=== PATIENT | female | born 1995 | race Caucasian/White ===

== ENCOUNTER 2018-07-24 15:15 | Outpatient (RCR) | payer OTHER, SELFPAY ==
--- NOTE | 2018-02-10 16:16 | PT.OTN ---
Current Diagnoses Stiffness of right knee, not elsewhere classified (02/11/18) Muscle weakness (generalized) (02/11/18) Other abnormalities of gait and mobility (02/11/18) Sprain of anterior cruciate ligament of right knee, subsequent encounter (02/11/18) Transition note: On February 10, 2018 our therapy services consisting of Speech, Occupational, and Physical Therapy transitioned from the [employer] electronic documentation system to a new [employer] electronic documentation system.?? All documentation prior to February 10 can be found under [employer] saved data. From February 10 forward all medical record documentation will be in [employer] 6.1.
--- NOTE | 2018-02-11 12:40 | PT.OTN ---
Current Diagnoses Stiffness of right knee, not elsewhere classified (02/11/18) Muscle weakness (generalized) (02/11/18) Other abnormalities of gait and mobility (02/11/18) Sprain of anterior cruciate ligament of right knee, subsequent encounter (02/11/18) Physical Therapy Treatment Note PT-OP-A Visit Information Start: 02/11/18 09:30 Freq: Status: Active Protocol: Activity Type Activity Date Activity User E-Sign Co-Sign Detail Recorded Client Recorded Date Recorded By Document 02/11/18 11:58 [place] [id number] 02/11/18 12:10 [facility] 02/11/18 11:58 Out-Patient Physical Therapy Visit Information [Visit Information] -Visit Type Treatment Note -Visit Note 11/45 visits per calendar year -Visit Start Time 09:45 -Visit Stop Time 10:30 -Total Visit Minutes 45 -Visit Number 11 -Number of ROADWAY TECHNICIAN Visits 0 [Evaluation Information] -Evaluation Date 01/01/18 PT-OP-C Subjective Start: 02/11/18 09:30 Freq: Status: Active Protocol: Activity Type Activity Date Activity User E-Sign Co-Sign Detail Recorded Client Recorded Date Recorded By Document 02/11/18 11:58 [facility] [email or web address] 02/11/18 12:10 [facility] 02/11/18 11:58 OP-PT Subjective [Patient Comments] -Patient Comments Pt has been putting emphasis on improving her knee ROM at home. PT-OP-K Range of Motion Start: 02/11/18 09:30 Freq: Status: Active Protocol: Activity Type Activity Date Activity User E-Sign Co-Sign Detail Recorded Client Recorded Date Recorded By Document 02/11/18 11:58 [place] [id number] 02/11/18 12:10 [facility] 02/11/18 11:58 Knee Goniometric Range of Motion [Knee] Measured in Degrees Right -Knee ROM WFL No -Patient Position Supine -Flexion Active (120-145 degrees) 125 -Extension Active (0 degrees) 3 [ROM Limitations] -Comments R knee extension active to 1 deg . of flexion after manual therapy PT-OP-Q Treatments Start: 02/11/18 09:30 Freq: Status: Active Protocol: Activity Type Activity Date Activity User E-Sign Co-Sign Detail Recorded Client Recorded Date Recorded By Document 02/11/18 11:58 [facility] [email or web address] 02/11/18 12:10 [facility] 02/11/18 11:58 Cardio Equipment [Elliptical] -Duration (Minutes) 6 -Resistance 4 Therapeutic Exercises [Standing Exercises] 3 -Standing Exercise Name SL heel raises -Side right -Reps/Minutes 1 x 15 reps 2 -Standing Exercise Name Lunges- step through -Side bilateral -Equipment Used unilat. rail -Reps/Minutes 3 x 5 reps 1 -Standing Exercise Name Step downs -Side right -Equipment Used 6 steps -Reps/Minutes 12 reps Manual Therapy Treatment [Soft Tissue Mobilization] 2 -Body Location Piriformis & gluteal (R) -Mobilization Type Rolling -Intensity/Depth Deep -Body Position Sidelying 1 -Body Location Psoas (R) -Mobilization Type Sustained Pressure -Intensity/Depth Deep -Body Position Supine [Joint Mobilizations] 2 -Joint Tibiofemoral -Direction AP tibia and femur -Grade III -Reps/Duration 8 min 1 -Joint Patellofemoral (R) -Direction Superior, Inferior, medial glides -Body Position Supine -Reps/Duration 6 min PT-OP-T Assessment and Plan Start: 02/11/18 09:30 Freq: Status: Active Protocol: Activity Type Activity Date Activity User E-Sign Co-Sign Detail Recorded Client Recorded Date Recorded By Document 02/11/18 12:21 [facility] [email or web address] 02/11/18 12:27 [facility] 02/11/18 12:21 Physical Therapy Assessment [Rehab Potential] -Rehabilitation Potential Good [Impairments] -Impairments ROM Soft Tissue Mobility Strength [Assessment Summary] -Assessment Pt still with limited knee ROM, although demonstrates good carry over from last session. Pt with increased pain in R psoas and piriformis and gluteals, which contribute to impaired gait. Overall, pt is progressing slowly s/p R ACL reconstruction, but appears to be improving with carry-over . Pt took to- go ice packs this date due to having to go back to work immediately after this session. Physical Therapy Plan [Frequency and Duration] -Frequency of Treatment 2x/Week -Duration of Treatment 12 weeks -Plan of Care Start Date 01/01/18 -Plan of Care End Date 04/24/18 [Therapeutic Interventions] -Therapeutic Interventions Balance Training Gait Training Neuromuscular Re-education Soft Tissue Mobilization Therapeutic Exercises [Next Visit Focus/Plan] -Next Visit Plan Continue to progress R knee ROM (extension and flexion), R knee hamstring and quad strengthening, gait training.
--- NOTE | 2018-02-13 10:45 | PT.OTN ---
Current Diagnoses Stiffness of right knee, not elsewhere classified (02/13/18) Muscle weakness (generalized) (02/13/18) Other abnormalities of gait and mobility (02/13/18) Sprain of anterior cruciate ligament of right knee, subsequent encounter (02/13/18) Physical Therapy Treatment Note PT-OP-A Visit Information Start: 02/11/18 09:30 Freq: Status: Active Protocol: Activity Type Activity Date Activity User E-Sign Co-Sign Detail Recorded Client Recorded Date Recorded By Document 02/13/18 09:45 [place] [id number] 02/13/18 10:35 [facility] 02/13/18 09:45 Out-Patient Physical Therapy Visit Information [Visit Information] -Visit Type Treatment Note -Visit Start Time 09:45 -Visit Stop Time 10:31 -Total Visit Minutes 46 -Visit Number 12 -Number of LABOR RELATIONS OFFICER Visits 0 PT-OP-C Subjective Start: 02/11/18 09:30 Freq: Status: Active Protocol: Activity Type Activity Date Activity User E-Sign Co-Sign Detail Recorded Client Recorded Date Recorded By Document 02/13/18 09:45 [place] [id number] 02/13/18 10:35 [facility] 02/13/18 09:45 OP-PT Subjective [Patient Comments] -Patient Comments Pt notes that she has been working to get her extension. No increased pain after previous treatment. PT-OP-K Range of Motion Start: 02/11/18 09:30 Freq: Status: Active Protocol: Activity Type Activity Date Activity User E-Sign Co-Sign Detail Recorded Client Recorded Date Recorded By Document 02/13/18 09:45 [place] [id number] 02/13/18 10:44 [facility] 02/13/18 09:45 Knee Goniometric Range of Motion [Knee] Measured in Degrees Right -Knee ROM WFL No -Patient Position Supine -Extension Active (degrees) 3 -Extension Passive (degrees) 0 PT-OP-Q Treatments Start: 02/11/18 09:30 Freq: Status: Active Protocol: Activity Type Activity Date Activity User E-Sign Co-Sign Detail Recorded Client Recorded Date Recorded By Document 02/13/18 09:45 [facility] [email or web address] 02/13/18 10:44 [facility] 02/13/18 09:45 Cardio Equipment [Elliptical] -Duration (Minutes) 6 -Resistance 6 Therapeutic Exercises [Supine Exercises] 1 -Supine Exercise Name Psoas and Rectus Femoris stretch -Side right -Reps/Minutes 4 -Comments RLE off table Manual Therapy Treatment [Soft Tissue Mobilization] 3 -Body Location R knee scar tissue -Mobilization Type Rolling -Intensity/Depth Moderate -Body Position Supine -Comments 7 min. 1 -Body Location Psoas (R) -Mobilization Type Sustained Pressure -Intensity/Depth Deep -Body Position Supine -Comments 14min [Joint Mobilizations] 2 -Joint Tibiofemoral -Direction AP tibia and femur -Grade III -Reps/Duration 15 min. PT-OP-T Assessment and Plan Start: 02/11/18 09:30 Freq: Status: Active Protocol: Activity Type Activity Date Activity User E-Sign Co-Sign Detail Recorded Client Recorded Date Recorded By Document 02/13/18 09:45 [facility] [email or web address] 02/13/18 10:44 [facility] 02/13/18 09:45 Physical Therapy Assessment [Assessment Summary] -Assessment Pt with improvement to 0 deg. passively after manual therapy . Her quadriceps activation is improving but still inconsistent at time with excessive gluteal activation. Physical Therapy Plan [Frequency and Duration] -Frequency of Treatment 2x/Week -Duration of Treatment 12 weeks -Plan of Care Start Date 01/01/18 -Plan of Care End Date 04/24/18 [Next Visit Focus/Plan] -Next Visit Plan Continue to progress ROM of the R knee ( extension and flexion), standing balance, CKC activities.
--- NOTE | 2018-02-18 18:13 | PT.OTN ---
Current Diagnoses Stiffness of right knee, not elsewhere classified (02/18/18) Muscle weakness (generalized) (02/18/18) Other abnormalities of gait and mobility (02/18/18) Sprain of anterior cruciate ligament of right knee, subsequent encounter (02/18/18) Physical Therapy Treatment Note PT-OP-A Visit Information Start: 02/11/18 09:30 Freq: Status: Active Protocol: Document 02/18/18 10:30 [facility] (Rec: 02/18/18 18:13 [facility] [email or web address]) Out-Patient Physical Therapy Visit Information Visit Information Visit Type Treatment Note Visit Start Time 09:45 Visit Stop Time 10:30 Total Visit Minutes 45 Visit Number 13 Number of ADMISSIONS RECRUITER Visits 0 PT-OP-C Subjective Start: 02/11/18 09:30 Freq: Status: Active Protocol: Document 02/18/18 10:30 [facility] (Rec: 02/18/18 18:13 [facility] [email or web address]) OP-PT Subjective Patient Comments Patient Comments Pt reports that her hip flexors feel tighter this week . She has made an effort to take time to work on her ROM at work. PT-OP-K Range of Motion Start: 02/11/18 09:30 Freq: Status: Active Protocol: Document 02/18/18 10:30 [facility] (Rec: 02/18/18 18:13 [facility] [email or web address]) Knee Goniometric Range of Motion Knee Measured in Degrees Right Knee ROM WFL No Patient Position Supine Flexion Active (degrees) 132 Flexion Passive (degrees) 136 Extension Active (degrees) 2 Extension Passive (degrees) 0 PT-OP-Q Treatments Start: 02/11/18 09:30 Freq: Status: Active Protocol: Document 02/18/18 10:30 [facility] (Rec: 02/18/18 18:13 [facility] [email or web address]) Therapeutic Exercises Prone Exercises 2 Prone Exercise Name HS curl Side right Resistance 4 lbs Equipment Used AW Reps/Minutes 15 reps 1 Prone Exercise Name Rectus femoris stretch Side right Equipment Used bed sheet around RLE Reps/Minutes 2 min. Standing Exercises 5 Standing Exercise Name Step up/down Equipment Used 8 step Reps/Minutes 10 each direction 4 Standing Exercise Name TKE Side right Resistance L3 band Reps/Minutes 30 reps Manual Therapy Treatment Soft Tissue Mobilization 3 Body Location R knee scar tissue Mobilization Type Rolling Intensity/Depth Moderate Body Position Supine Comments 5 min. 1 Body Location Psoas (R) Mobilization Type Sustained Pressure Intensity/Depth Deep Body Position Supine Comments 10 min Joint Mobilizations 2 Joint Tibiofemoral Direction AP tibia and femur Grade III Reps/Duration 6 min. 1 Joint Patellofemoral (R) Direction Superior, Inferior, medial glides Body Position Supine Reps/Duration 4 min PT-OP-T Assessment and Plan Start: 02/11/18 09:30 Freq: Status: Active Protocol: Document 02/18/18 10:30 [facility] (Rec: 02/18/18 18:13 [facility] [email or web address]) Physical Therapy Assessment Assessment Summary Assessment Pt improving with R knee flexion to 132 degrees AROM of the R knee, appears to be most limited by rectus femoris tightness. Pt requires tactile cuing for quadriceps activation with TKE and occasional VC for gluteal activation with CKC activities . Physical Therapy Plan Frequency and Duration Frequency of Treatment 2x/Week Duration of Treatment 12 weeks Plan of Care Start Date 01/01/18 Plan of Care End Date 04/24/18 Next Visit Focus/Plan Next Visit Plan psoas and rectus femoris release and stretching, CKC R knee strengthening, cont to prog R knee ROM
--- NOTE | 2018-02-25 16:18 | PT.OTN ---
Current Diagnoses Stiffness of right knee, not elsewhere classified (02/25/18) Muscle weakness (generalized) (02/25/18) Other abnormalities of gait and mobility (02/25/18) Sprain of anterior cruciate ligament of right knee, subsequent encounter (02/25/18) Physical Therapy Treatment Note PT-OP-A Visit Information Start: 02/11/18 09:30 Freq: Status: Active Protocol: Document 02/25/18 16:08 [facility] (Rec: 02/25/18 16:17 [facility] [email or web address]) Out-Patient Physical Therapy Visit Information Visit Information Visit Type Treatment Note Visit Start Time 09:45 Visit Stop Time 10:30 Total Visit Minutes 45 Visit Number 14 Number of ADVERTISING VICE PRESIDENT Visits 0 Evaluation Information Evaluation Date 01/01/18 PT-OP-C Subjective Start: 02/11/18 09:30 Freq: Status: Active Protocol: Document 02/25/18 16:08 [facility] (Rec: 02/25/18 16:17 [facility] [email or web address]) OP-PT Subjective Patient Comments Patient Comments Pt notes that she was sore with increased standing all day on Friday. Her MD recommended that she wear her brace while sleeping at night. PT-OP-K Range of Motion Start: 02/11/18 09:30 Freq: Status: Active Protocol: Document 02/25/18 16:08 [facility] (Rec: 02/25/18 16:17 [facility] [email or web address]) Knee Goniometric Range of Motion Knee Measured in Degrees Right Knee ROM WFL No Patient Position Supine Flexion Active (degrees) 126 Extension Active (degrees) 1 Extension Passive (degrees) 0 PT-OP-Q Treatments Start: 02/11/18 09:30 Freq: Status: Active Protocol: Document 02/25/18 16:08 [facility] (Rec: 02/25/18 16:17 [facility] [email or web address]) Cardio Equipment Elliptical Duration (Minutes) 6 Resistance 6 Therapeutic Exercises Supine Exercises 2 Supine Exercise Name SLR - neutral and ER Side right Reps/Minutes 6 neutral, 3 with ER Standing Exercises 6 Standing Exercise Name Contralateral 4 way hip Resistance L1 theraband Reps/Minutes 10 each Comments standing on afffected side 4 Standing Exercise Name TKE Side right Resistance L3 band Reps/Minutes 30 reps 3 Standing Exercise Name SL heel raises Side right Reps/Minutes 1 x 15 reps Manual Therapy Treatment Soft Tissue Mobilization 1 Body Location Psoas (R) Mobilization Type Sustained Pressure Intensity/Depth Deep Body Position Supine Comments 8 min Joint Mobilizations 2 Joint Tibiofemoral Direction AP tibia and femur Grade III Reps/Duration 6 min. 1 Joint Patellofemoral (R) Direction Superior, Inferior, medial glides Body Position Supine Reps/Duration 6 min PT-OP-T Assessment and Plan Start: 02/11/18 09:30 Freq: Status: Active Protocol: Document 02/25/18 16:08 [facility] (Rec: 02/25/18 16:17 [facility] [email or web address]) Physical Therapy Assessment Assessment Summary Assessment Pt with decreased knee flexion in measurement at the beginning of session, but extension improved after manual therapy. Pt was able to maintain extension without extensor lag for first time in therapy sessions. Pt fatigues rapidly with SLR. Physical Therapy Plan Frequency and Duration Frequency of Treatment 2x/Week Duration of Treatment 12 weeks Plan of Care Start Date 01/01/18 Plan of Care End Date 04/24/18 Next Visit Focus/Plan Next Visit Plan cont. R knee HS, quadriceps strengthening, progress ROM.
--- NOTE | 2018-03-03 09:47 | PT.OTN ---
Current Diagnoses Stiffness of right knee, not elsewhere classified (03/03/18) Muscle weakness (generalized) (03/03/18) Other abnormalities of gait and mobility (03/03/18) Sprain of anterior cruciate ligament of right knee, subsequent encounter (03/03/18) Physical Therapy Treatment Note PT-OP-A Visit Information Start: 02/11/18 09:30 Freq: Status: Active Protocol: Document 03/03/18 08:12 [facility] (Rec: 03/03/18 09:45 [facility] [id number]) Out-Patient Physical Therapy Visit Information Visit Information Visit Type Treatment Note Visit Start Time 08:15 Visit Stop Time 09:00 Total Visit Minutes 45 Visit Number 15 Number of PROGRAM HOST Visits 0 PT-OP-C Subjective Start: 02/11/18 09:30 Freq: Status: Active Protocol: Document 03/03/18 08:12 [facility] (Rec: 03/03/18 09:45 [facility] [id number]) OP-PT Subjective Patient Comments Patient Comments Pt reports she stepped in holes this weekend which made her knee give out a little but has been feeling okay. Reports she had tried wearing brace, but is unable to make it through the night wearing it. PT-OP-K Range of Motion Start: 02/11/18 09:30 Freq: Status: Active Protocol: Document 03/03/18 08:12 [facility] (Rec: 03/03/18 09:45 [facility] [id number]) Knee Goniometric Range of Motion Knee Measured in Degrees Right Flexion Active (degrees) 125 Extension Active (degrees) 4 PT-OP-Q Treatments Start: 02/11/18 09:30 Freq: Status: Active Protocol: Document 03/03/18 08:12 [facility] (Rec: 03/03/18 09:45 [facility] [id number]) Cardio Equipment Elliptical Duration (Minutes) 6 Resistance 6 Therapeutic Exercises Supine Exercises 2 Supine Exercise Name SLR - neutral and ER Side right Reps/Minutes 6 neutral, 3 with ER Standing Exercises 7 Standing Exercise Name hip flexor stretch 2 Standing Exercise Name Lunges Side bilateral Reps/Minutes 2x10 1 Standing Exercise Name Squats Equipment Used 8 lb Reps/Minutes 2x10 Comments focus on neutral back Manual Therapy Treatment Soft Tissue Mobilization 3 Body Location R knee scar tissue Mobilization Type Rolling Intensity/Depth Moderate Body Position Supine 1 Body Location Psoas & iliacus (R) Mobilization Type Sustained Pressure Intensity/Depth Deep Body Position Supine Comments distal Joint Mobilizations 2 Joint Tibiofemoral Direction PA Grade III 1 Joint Patellofemoral (R) Direction medial Body Position Supine PT-OP-R Modalities Start: 02/11/18 09:30 Freq: Status: Active Protocol: Document 03/03/18 08:12 [facility] (Rec: 03/03/18 09:47 [facility] [id number]) Hot Pack/Cold Pack Treatment Cold Pack Location R Knee Patient Position Hooklying Treatment Duration (minutes) 10 PT-OP-T Assessment and Plan Start: 02/11/18 09:30 Freq: Status: Active Protocol: Document 03/03/18 08:12 [facility] (Rec: 03/03/18 09:45 [facility] [id number]) Physical Therapy Assessment Assessment Summary Assessment Pt had dec knee flex & ext upon start of PT with inc to 0 -132 AROM after rx. Pt required cueing for squat form . Physical Therapy Plan Frequency and Duration Frequency of Treatment 2x/Week Duration of Treatment 12 weeks Plan of Care Start Date 01/01/18 Plan of Care End Date 04/24/18 Next Visit Focus/Plan Next Visit Plan cont. R knee HS, quadriceps strengthening, progress ROM. Please Sign and Return: I have reviewed this Plan of Care and certify that the skilled therapy services above are required to meet the patient???s needs. Physician Signature Date Printed Name and Credentials Clinical Instructor Signature Printed Name and Credentials
--- NOTE | 2018-03-05 10:44 | PT.OTN ---
Current Diagnoses Stiffness of right knee, not elsewhere classified (03/05/18) Muscle weakness (generalized) (03/05/18) Other abnormalities of gait and mobility (03/05/18) Sprain of anterior cruciate ligament of right knee, subsequent encounter (03/05/18) Physical Therapy Treatment Note PT-OP-A Visit Information Start: 02/11/18 09:30 Freq: Status: Active Protocol: Document 03/05/18 10:37 [facility] (Rec: 03/05/18 10:44 [facility] [email or web address]) Out-Patient Physical Therapy Visit Information Visit Information Visit Type Treatment Note Visit Start Time 09:45 Visit Stop Time 10:40 Total Visit Minutes 55 Visit Number 16 Number of APPLICATION INTEGRATION ARCHITECT Visits 0 Evaluation Information Evaluation Date 01/01/18 PT-OP-C Subjective Start: 02/11/18 09:30 Freq: Status: Active Protocol: Document 03/05/18 10:37 [facility] (Rec: 03/05/18 10:44 [facility] [email or web address]) OP-PT Subjective Patient Comments Patient Comments Pt notes she was sore after previous session, but no pain in the knee. Patient Reported Progress Improving PT-OP-K Range of Motion Start: 02/11/18 09:30 Freq: Status: Active Protocol: Document 03/05/18 10:37 [facility] (Rec: 03/05/18 10:44 [facility] [email or web address]) Knee Goniometric Range of Motion Knee Measured in Degrees Right Flexion Active (degrees) 128 Extension Active (degrees) 3 Knee ROM Limitations Comments extension to 0 deg. after manual therapy. PT-OP-Q Treatments Start: 02/11/18 09:30 Freq: Status: Active Protocol: Document 03/05/18 10:37 [facility] (Rec: 03/05/18 10:44 [facility] [email or web address]) Therapeutic Exercises Supine Exercises 2 Supine Exercise Name SLR - neutral and ER Side right Reps/Minutes 10 neutral, 8 with ER Standing Exercises 8 Standing Exercise Name Gastroc/soleus stretch Side bilateral Equipment Used [id number] 7 Standing Exercise Name hip flexor stretch 2 Standing Exercise Name Lunges Side bilateral Reps/Minutes 3x10 Manual Therapy Treatment Soft Tissue Mobilization 3 Body Location R knee scar tissue Mobilization Type Rolling Intensity/Depth Moderate Body Position Supine 1 Body Location Psoas & iliacus (R) Mobilization Type Sustained Pressure Intensity/Depth Deep Body Position Supine Comments distal Joint Mobilizations 2 Joint Tibiofemoral Direction PA Grade III Reps/Duration 10 min 1 Joint Patellofemoral (R) Direction medial Body Position Supine Reps/Duration 5 min PT-OP-R Modalities Start: 02/11/18 09:30 Freq: Status: Active Protocol: Document 03/05/18 10:37 [facility] (Rec: 03/05/18 10:44 [facility] [email or web address]) Hot Pack/Cold Pack Treatment Cold Pack Location R Knee Patient Position Hooklying Treatment Duration (minutes) 10 PT-OP-T Assessment and Plan Start: 02/11/18 09:30 Freq: Status: Active Protocol: Document 03/05/18 10:37 [facility] (Rec: 03/05/18 10:44 [facility] [email or web address]) Physical Therapy Assessment Assessment Summary Assessment Pt initially lacking 3 deg of extension, improved to 0 deg after manual therapy. Improved tibiofemoral joint mobility, but still hypomobile. Pt with no discomfort with SLR with medial patellar glide performed prior to each rep. Physical Therapy Plan Next Visit Focus/Plan Next Visit Plan R knee HS and quad strengthening, CKC activities. Please Sign and Return: I have reviewed this Plan of Care and certify that the skilled therapy services above are required to meet the patient???s needs. Physician Signature Date Printed Name and Credentials Clinical Instructor Signature Printed Name and Credentials
--- NOTE | 2018-03-12 12:16 | PT.OTN ---
Current Diagnoses Stiffness of right knee, not elsewhere classified (03/12/18) Muscle weakness (generalized) (03/12/18) Other abnormalities of gait and mobility (03/12/18) Sprain of anterior cruciate ligament of right knee, subsequent encounter (03/12/18) Physical Therapy Treatment Note PT-OP-A Visit Information Start: 02/11/18 09:30 Freq: Status: Active Protocol: Document 03/12/18 12:00 RCC (Rec: 03/12/18 12:16 RCC [email or web address]) Out-Patient Physical Therapy Visit Information Visit Information Visit Type Treatment Note Visit Start Time 11:15 Visit Stop Time 12:00 Total Visit Minutes 45 Visit Number 17 Number of WARPER CREELER Visits 0 Evaluation Information Evaluation Date 01/01/18 PT-OP-C Subjective Start: 02/11/18 09:30 Freq: Status: Active Protocol: Document 03/12/18 12:00 RCC (Rec: 03/12/18 12:16 RCC [email or web address]) OP-PT Subjective Patient Comments Patient Comments Pt was able to do a very slight, [place] jog [place] with [place] for a few steps. Patient Reported Progress Improving PT-OP-K Range of Motion Start: 02/11/18 09:30 Freq: Status: Active Protocol: Document 03/12/18 12:00 RCC (Rec: 03/12/18 12:16 RCC [email or web address]) Knee Goniometric Range of Motion Knee Measured in Degrees Right Extension Active (degrees) 2 Knee ROM Limitations Comments extension to 0 deg after manual therapy. PT-OP-Q Treatments Start: 02/11/18 09:30 Freq: Status: Active Protocol: Document 03/12/18 12:00 RCC (Rec: 03/12/18 12:16 RCC [email or web address]) Cardio Equipment Elliptical Duration (Minutes) 6 Resistance 6 Gym Equipment Shuttle Balance 1 Details Squats (1/2) A/P and lateral Reps/Duration 10 each Comments Red setting Sport Cord 3 Exercise Details Squats Cord/Resistance 1x12 2 Exercise Details Step up, down, lateral Cord/Resistance Black/blue Reps/Duration 10 each 1 Exercise Details Fwd, bkwd, lateral walk Cord/Resistance Black/blue Reps/Duration 5 each Therapeutic Exercises Standing Exercises 2 Standing Exercise Name Lunges Side bilateral Reps/Minutes 2x10 Comments onto BOSU (blue) Manual Therapy Treatment Soft Tissue Mobilization 3 Body Location R knee scar tissue Mobilization Type Rolling Intensity/Depth Moderate Body Position Supine 1 Body Location Psoas & iliacus (R) Mobilization Type Sustained Pressure Intensity/Depth Deep Body Position Supine Comments distal Joint Mobilizations 2 Joint Tibiofemoral Direction PA Grade III Reps/Duration 8 min 1 Joint Patellofemoral (R) Direction medial Body Position Supine Reps/Duration 2 min PT-OP-R Modalities Start: 02/11/18 09:30 Freq: Status: Active Protocol: Document 03/05/18 10:37 RCC (Rec: 03/05/18 10:44 RCC [email or web address]) Hot Pack/Cold Pack Treatment Cold Pack Location R Knee Patient Position Hooklying Treatment Duration (minutes) 10 PT-OP-T Assessment and Plan Start: 02/11/18 09:30 Freq: Status: Active Protocol: Document 03/12/18 12:00 RCC (Rec: 03/12/18 12:16 RCC [email or web address]) Physical Therapy Assessment Assessment Summary Assessment Pt with fair carry-over from previous session, but still require skilled intervention to achieve 0 deg extension of the R knee. Pt requires visual and tactile cuing with higher level CKC activities, and has increased lateral trunk motion occasionally due to weakness of R quadriceps and gluteals. Physical Therapy Plan Frequency and Duration Frequency of Treatment 2x/Week Duration of Treatment 12 weeks Plan of Care Start Date 01/01/18 Plan of Care End Date 04/24/18 Next Visit Focus/Plan Next Note Type Treatment Note Next Visit Plan continue to progress ROM as tolerated, R knee strength. Please Sign and Return: I have reviewed this Plan of Care and certify that the skilled therapy services above are required to meet the patient???s needs. Physician Signature Date Printed Name and Credentials Clinical Instructor Signature Printed Name and Credentials
--- NOTE | 2018-03-18 13:35 | PT.OTN ---
Current Diagnoses Stiffness of right knee, not elsewhere classified (03/18/18) Muscle weakness (generalized) (03/18/18) Other abnormalities of gait and mobility (03/18/18) Sprain of anterior cruciate ligament of right knee, subsequent encounter (03/18/18) Physical Therapy Treatment Note PT-OP-A Visit Information Start: 02/11/18 09:30 Freq: Status: Active Protocol: Document 03/18/18 10:40 RCC (Rec: 03/18/18 13:34 RCC [email or web address]) Out-Patient Physical Therapy Visit Information Visit Information Visit Type Treatment Note Visit Start Time 09:45 Visit Stop Time 10:40 Total Visit Minutes 55 Visit Number 18 Number of RIFFLER TENDER Visits 0 Evaluation Information Evaluation Date 01/01/18 PT-OP-C Subjective Start: 02/11/18 09:30 Freq: Status: Active Protocol: Document 03/18/18 10:40 RCC (Rec: 03/18/18 13:35 RCC [email or web address]) OP-PT Subjective Patient Comments Patient Comments Pt reports she walked a lot over the weekend, and noticed her knee got a little tight but no c/o pain. PT-OP-K Range of Motion Start: 02/11/18 09:30 Freq: Status: Active Protocol: Document 03/18/18 10:40 RCC (Rec: 03/18/18 13:34 RCC [email or web address]) Knee Goniometric Range of Motion Knee Measured in Degrees Right Flexion Active (degrees) 137 Extension Active (degrees) 4 Knee ROM Limitations Comments 1 deg of flexion in R knee after manual therapy. (lacking 1 deg of extension). PT-OP-Q Treatments Start: 02/11/18 09:30 Freq: Status: Active Protocol: Document 03/18/18 10:40 RCC (Rec: 03/18/18 13:34 RCC [email or web address]) Gym Equipment Shuttle Recovery 1 Details DL jumps Resistance 37 lbs Shuttle Recovery Platform Stable Reps/Time 1x15 Shuttle Balance 1 Details Squats (1/2) A/P and lateral Reps/Duration 10 each Comments Red setting Therapeutic Exercises Sitting Exercises 1 Sitting Exercise Name Stool scoots Reps/Minutes 2 min. Comments 50 ft Standing Exercises 9 Standing Exercise Name Step off with focus on landing to 1/2 squat Side bilateral Equipment Used 5 step Reps/Minutes 1x15 4 Standing Exercise Name TKE Side right Resistance L3 band Reps/Minutes 30 reps 1 Standing Exercise Name Squats- neutral and split- position Equipment Used ball on wall Reps/Minutes 10 each Comments focus on neutral back Manual Therapy Treatment Soft Tissue Mobilization 3 Body Location R knee scar tissue Mobilization Type Rolling Intensity/Depth Moderate Body Position Supine Joint Mobilizations 2 Joint Tibiofemoral Direction PA Grade III Reps/Duration 12 min 1 Joint Patellofemoral (R) Direction medial, superior, inferior Body Position Supine Reps/Duration 8 min PT-OP-R Modalities Start: 02/11/18 09:30 Freq: Status: Active Protocol: Document 03/18/18 10:40 RCC (Rec: 03/18/18 13:34 [facility] [address] [email or web address]) Hot Pack/Cold Pack Treatment Cold Pack Location R Knee Patient Position Prone Treatment Duration (minutes) 10 Patient Tolerance Good Comments 5 lb AW around ankle PT-OP-T Assessment and Plan Start: 02/11/18 09:30 Freq: Status: Active Protocol: Document 03/18/18 10:40 RCC (Rec: 03/18/18 13:34 [facility] [address] [email or web address]) Physical Therapy Assessment Assessment Summary Assessment Pt with decreased knee extension this session initially, but responded well to manual therapy. Pt without pain this session, able to tolerate landing (light plyometrics) and demonstrated improved low back positioning with squatting. Physical Therapy Plan Frequency and Duration Frequency of Treatment 2x/Week Duration of Treatment 12 weeks Plan of Care Start Date 01/01/18 Plan of Care End Date 04/24/18 Next Visit Focus/Plan Next Note Type Treatment Note Next Visit Plan continue to progress ROM as tolerated, R knee strength. Please Sign and Return: I have reviewed this Plan of Care and certify that the skilled therapy services above are required to meet the patient?s needs. Physician Signature Date Printed Name and Credentials Clinical Instructor Signature Printed Name and Credentials
--- NOTE | 2018-03-20 11:45 | PT.OTN ---
Current Diagnoses Stiffness of right knee, not elsewhere classified (03/20/18) Muscle weakness (generalized) (03/20/18) Other abnormalities of gait and mobility (03/20/18) Sprain of anterior cruciate ligament of right knee, subsequent encounter (03/20/18) Physical Therapy Treatment Note PT-OP-A Visit Information Start: 02/11/18 09:30 Freq: Status: Active Protocol: Document 03/20/18 10:30 RCC (Rec: 03/20/18 11:44 RCC [email or web address]) Out-Patient Physical Therapy Visit Information Visit Information Visit Type Treatment Note Visit Start Time 09:45 Visit Stop Time 10:40 Total Visit Minutes 55 Visit Number 19 Number of CITY COLLECTOR Visits 0 Evaluation Information Evaluation Date 01/01/18 PT-OP-C Subjective Start: 02/11/18 09:30 Freq: Status: Active Protocol: Document 03/20/18 10:30 RCC (Rec: 03/20/18 11:44 RCC [email or web address]) OP-PT Subjective Patient Comments Patient Comments Pt slept with her brace on the R knee last night. She also worked out at the gym for the first time yesterday since prior to injury. Patient Reported Progress Improving PT-OP-K Range of Motion Start: 02/11/18 09:30 Freq: Status: Active Protocol: Document 03/20/18 10:30 RCC (Rec: 03/20/18 11:44 RCC [email or web address]) Knee Goniometric Range of Motion Knee Measured in Degrees Right Flexion Active (degrees) 136 Extension Active (degrees) 2 Extension Passive (degrees) 0 Knee ROM Limitations Comments 0 deg of knee extension after manual therapy (AROM) PT-OP-Q Treatments Start: 02/11/18 09:30 Freq: Status: Active Protocol: Document 03/20/18 10:30 RCC (Rec: 03/20/18 11:44 RCC [email or web address]) Cardio Equipment Elliptical Duration (Minutes) 6 Resistance 6 Manual Therapy Treatment Soft Tissue Mobilization 3 Body Location R knee scar tissue Mobilization Type Rolling Intensity/Depth Moderate Body Position Supine 1 Body Location Psoas & iliacus (R) Mobilization Type Sustained Pressure Intensity/Depth Deep Body Position Supine Comments distal Joint Mobilizations 2 Joint Tibiofemoral Direction PA Grade IV Reps/Duration 14 min 1 Joint Patellofemoral (R) Direction medial, superior, inferior Body Position Supine Reps/Duration 8 min Other Other Manual Treatments Manual stretching of psoas and rectus femoris- supine with RLE off EOB, 6 min total PT-OP-R Modalities Start: 02/11/18 09:30 Freq: Status: Active Protocol: Document 03/20/18 10:30 RCC (Rec: 03/20/18 11:44 RCC [email or web address]) Hot Pack/Cold Pack Treatment Cold Pack Location R Knee Patient Position Prone Treatment Duration (minutes) 10 Patient Tolerance Good Comments 5 lb AW around ankle PT-OP-T Assessment and Plan Start: 02/11/18 09:30 Freq: Status: Active Protocol: Document 03/20/18 10:30 RCC (Rec: 03/20/18 11:44 RCC [email or web address]) Physical Therapy Assessment Assessment Summary Assessment Pt with 2 degrees lacking of extension of the right knee prior to this session, able to achieve 0 degrees after manual therapy. Pt's psoas and iliacus are restricted on the RLE. Pt was able to demonstrate improved knee and lumbar alignment with closed chain activities over the past two weeks and tolerated very light landing training without pain last session. Pt's ROM is still lacking, but is making progress and pt tolerating progression of exercises well. Physical Therapy Plan Frequency and Duration Frequency of Treatment 2x/Week Duration of Treatment 12 weeks Plan of Care Start Date 01/01/18 Plan of Care End Date 04/24/18 Next Visit Focus/Plan Next Note Type Treatment Note Next Visit Plan continue to progress ROM as tolerated, R knee strength. Please Sign and Return: I have reviewed this Plan of Care and certify that the skilled therapy services above are required to meet the patient?s needs. Physician Signature Date Printed Name and Credentials Clinical Instructor Signature Printed Name and Credentials
--- NOTE | 2018-03-27 09:45 | PT.OTN ---
Current Diagnoses Stiffness of right knee, not elsewhere classified (03/27/18) Muscle weakness (generalized) (03/27/18) Other abnormalities of gait and mobility (03/27/18) Sprain of anterior cruciate ligament of right knee, subsequent encounter (03/27/18) Physical Therapy Treatment Note PT-OP-A Visit Information Start: 02/11/18 09:30 Freq: Status: Active Protocol: Document 03/27/18 09:00 DCW (Rec: 03/27/18 09:45 DCW [id number]) Out-Patient Physical Therapy Visit Information Visit Information Visit Type Treatment Note Visit Start Time 09:00 Visit Stop Time 09:45 Total Visit Minutes 45 Visit Number 20 Number of MUSIC TEACHER Visits 0 Evaluation Information Evaluation Date 01/01/18 PT-OP-C Subjective Start: 02/11/18 09:30 Freq: Status: Active Protocol: Document 03/27/18 09:00 DCW (Rec: 03/27/18 09:45 DCW [id number]) OP-PT Subjective Patient Comments Patient Comments Pt reports her knee feels average today, notes that she was at a conference and did a lot of walking (~2 miles), more than she has done since surgery, so she was fairly sore afterward. PT-OP-Q Treatments Start: 02/11/18 09:30 Freq: Status: Active Protocol: Document 03/27/18 09:00 DCW (Rec: 03/27/18 09:45 DCW [id number]) Cardio Equipment Elliptical Duration (Minutes) 6 Resistance 6 Gym Equipment Shuttle Recovery 1 Details DL jumps Resistance 50 lbs Shuttle Recovery Platform Stable Reps/Time 1x15 Shuttle Balance 1 Details Squats (1/2) A/P and lateral Reps/Duration 10 each Comments Red setting Therapeutic Exercises Standing Exercises 9 Standing Exercise Name Step off with focus on landing to 1/2 squat Side bilateral Equipment Used 5 step Reps/Minutes 1x15 Manual Therapy Treatment Soft Tissue Mobilization 3 Body Location R knee scar tissue Mobilization Type Rolling Intensity/Depth Moderate Body Position Supine 1 Body Location Psoas & iliacus (R) Mobilization Type Sustained Pressure Intensity/Depth Deep Body Position Supine Comments distal Joint Mobilizations 2 Joint Tibiofemoral Direction PA Grade IV PT-OP-T Assessment and Plan Start: 02/11/18 09:30 Freq: Status: Active Protocol: Document 03/27/18 09:00 LINCOLN (Rec: 03/27/18 09:45 [email or web address] [id number]) Physical Therapy Assessment Assessment Summary Assessment Pt doing well today, reports she was cleared by her surgeon to ride a bike. Performs her jumping/landing exercises with proper positioning, no complaints of pain. Physical Therapy Plan Frequency and Duration Frequency of Treatment 2x/Week Duration of Treatment 12 weeks Plan of Care Start Date 01/01/18 Plan of Care End Date 04/24/18 Next Visit Focus/Plan Next Note Type Treatment Note Next Visit Plan continue to progress ROM as tolerated, R knee strength. Please Sign and Return: I have reviewed this Plan of Care and certify that the skilled therapy services above are required to meet the patient?s needs. Physician Signature Date Printed Name and Credentials Clinical Instructor Signature Printed Name and Credentials
--- NOTE | 2018-04-01 17:00 | PT.OTN ---
Current Diagnoses Stiffness of right knee, not elsewhere classified (04/01/18) Muscle weakness (generalized) (04/01/18) Other abnormalities of gait and mobility (04/01/18) Sprain of anterior cruciate ligament of right knee, subsequent encounter (04/01/18) Physical Therapy Treatment Note PT-OP-A Visit Information Start: 02/11/18 09:30 Freq: Status: Active Protocol: Document 04/01/18 10:30 RCC (Rec: 04/01/18 17:00 RCC [email or web address]) Out-Patient Physical Therapy Visit Information Visit Information Visit Type Treatment Note Visit Start Time 09:45 Visit Stop Time 10:40 Total Visit Minutes 55 Visit Number 21 Number of BENCH MACHINE OPERATOR Visits 0 Evaluation Information Evaluation Date 01/01/18 PT-OP-C Subjective Start: 02/11/18 09:30 Freq: Status: Active Protocol: Document 04/01/18 10:30 RCC (Rec: 04/01/18 17:00 RCC [email or web address]) OP-PT Subjective Patient Comments Patient Comments Pt notes overall she has had a pretty good week. No c/o incresed pain in R knee. PT-OP-K Range of Motion Start: 02/11/18 09:30 Freq: Status: Active Protocol: Document 04/01/18 10:30 RCC (Rec: 04/01/18 17:00 RCC [email or web address]) Knee Goniometric Range of Motion Knee Measured in Degrees Right Flexion Active (degrees) 134 Extension Active (degrees) 1 Extension Passive (degrees) 0 PT-OP-Q Treatments Start: 02/11/18 09:30 Freq: Status: Active Protocol: Document 04/01/18 10:30 RCC (Rec: 04/01/18 17:00 RCC [email or web address]) Cardio Equipment Elliptical Duration (Minutes) 6 Resistance 6 Therapeutic Exercises Standing Exercises 11 Standing Exercise Name Trampoline jumps- DL Side bilateral Equipment Used trampoline Reps/Minutes 2 min 10 Standing Exercise Name DL broad jump, forward and lateral DL quick feet jumps Side bilateral Reps/Minutes 8 min. 9 Standing Exercise Name Step off with focus on landing to 1/2 squat Side bilateral Equipment Used 5 step Reps/Minutes 1x10 Manual Therapy Treatment Soft Tissue Mobilization 3 Body Location R knee scar tissue Mobilization Type Rolling Intensity/Depth Moderate Body Position Supine 1 Body Location Psoas & iliacus (R) Mobilization Type Sustained Pressure Intensity/Depth Deep Body Position Supine Comments distal Joint Mobilizations 2 Joint Tibiofemoral Direction PA Grade IV 1 Joint Patellofemoral (R) Direction medial, superior, inferior Body Position Supine PT-OP-R Modalities Start: 02/11/18 09:30 Freq: Status: Active Protocol: Document 04/01/18 10:30 RCC (Rec: 04/01/18 17:00 RCC [email or web address]) Hot Pack/Cold Pack Treatment Cold Pack Location R Knee Patient Position Prone Treatment Duration (minutes) 10 Patient Tolerance Good Comments 5 lb AW around ankle PT-OP-T Assessment and Plan Start: 02/11/18 09:30 Freq: Status: Active Protocol: Document 04/01/18 10:30 RCC (Rec: 04/01/18 17:00 RCC [email or web address]) Physical Therapy Assessment Assessment Summary Assessment Pt is making slow but good progression with knee extension ROM, and still lacking some active R knee flexion. Pt with good landing technique with step-downs, occasional ER of the R foot with broad jumps requiring cuing. Physical Therapy Plan Frequency and Duration Frequency of Treatment 2x/Week Duration of Treatment 12 weeks Plan of Care Start Date 01/01/18 Plan of Care End Date 04/24/18 Next Visit Focus/Plan Next Note Type Treatment Note Next Visit Plan continue to progress ROM as tolerated, DL jumping and progress to SL jumping in 1-2 weeks if tolerating well.
--- NOTE | 2018-04-03 10:38 | PT.OTN ---
Current Diagnoses Stiffness of right knee, not elsewhere classified (04/03/18) Muscle weakness (generalized) (04/03/18) Other abnormalities of gait and mobility (04/03/18) Sprain of anterior cruciate ligament of right knee, subsequent encounter (04/03/18) Physical Therapy Treatment Note PT-OP-A Visit Information Start: 02/11/18 09:30 Freq: Status: Active Protocol: Document 04/03/18 10:38 RCC (Rec: 04/03/18 13:44 RCC [email or web address]) Out-Patient Physical Therapy Visit Information Visit Information Visit Type Treatment Note Visit Start Time 09:48 Visit Stop Time 10:38 Total Visit Minutes 50 Visit Number 22 Number of SPRINKLER INSPECTOR Visits 0 PT-OP-C Subjective Start: 02/11/18 09:30 Freq: Status: Active Protocol: Document 04/03/18 10:38 RCC (Rec: 04/03/18 13:44 RCC [email or web address]) OP-PT Subjective Patient Comments Patient Comments Pt notes she feels good today, no new complaints. PT-OP-K Range of Motion Start: 02/11/18 09:30 Freq: Status: Active Protocol: Document 04/03/18 10:38 RCC (Rec: 04/03/18 13:44 RCC [email or web address]) Knee Goniometric Range of Motion Knee Measured in Degrees Right Flexion Active (degrees) 134 Flexion Passive (degrees) 141 Extension Active (degrees) 0 PT-OP-Q Treatments Start: 02/11/18 09:30 Freq: Status: Active Protocol: Document 04/03/18 10:38 RCC (Rec: 04/03/18 13:44 RCC [email or web address]) Cardio Equipment Elliptical Duration (Minutes) 6 Resistance 6 Gym Equipment Shuttle Recovery Other- 2 Details SL (R) jumps Resistance 37 lbs Shuttle Recovery Platform Stable Therapeutic Exercises Standing Exercises 11 Standing Exercise Name Trampoline jumps- DL Side bilateral Equipment Used trampoline Reps/Minutes 2 min 10 Standing Exercise Name DL broad jump, forward and lateral DL quick feet jumps, lateral fwd jumps Side bilateral Manual Therapy Treatment Soft Tissue Mobilization 3 Body Location R knee scar tissue Mobilization Type Rolling Intensity/Depth Moderate Body Position Supine 2 Body Location R quadriceps Mobilization Type Rolling Body Position Supine Comments Rolling stick 1 Body Location Psoas & iliacus (R) Mobilization Type Sustained Pressure Intensity/Depth Deep Body Position Supine Comments distal Joint Mobilizations 2 Joint Tibiofemoral Direction PA, AP Grade IV 1 Joint Patellofemoral (R) Direction medial, superior, inferior Body Position Supine PT-OP-R Modalities Start: 02/11/18 09:30 Freq: Status: Active Protocol: Document 04/01/18 10:30 RCC (Rec: 04/01/18 17:00 RCC [email or web address]) Hot Pack/Cold Pack Treatment Cold Pack Location R Knee Patient Position Prone Treatment Duration (minutes) 10 Patient Tolerance Good Comments 5 lb AW around ankle PT-OP-T Assessment and Plan Start: 02/11/18 09:30 Freq: Status: Active Protocol: Document 04/03/18 10:38 RCC (Rec: 04/03/18 13:44 RCC [email or web address]) Physical Therapy Assessment Assessment Summary Assessment Pt able to achieve 0 degrees of R knee extension with initial cold measurement prior to mobilizations. Verbal cuing required for knee flexion position in landing on trampoline and jumping. Physical Therapy Plan Frequency and Duration Frequency of Treatment 2x/Week Duration of Treatment 12 weeks Plan of Care Start Date 01/01/18 Plan of Care End Date 04/24/18 Next Visit Focus/Plan Next Note Type Treatment Note Next Visit Plan continue to progress ROM as tolerated, DL jumping and progress to SL jumping in 1 weeks if tolerating well. Progression toward jogging in 1 week if tolerable.
--- NOTE | 2018-04-08 10:30 | PT.OTN ---
Current Diagnoses Stiffness of right knee, not elsewhere classified (04/08/18) Muscle weakness (generalized) (04/08/18) Other abnormalities of gait and mobility (04/08/18) Sprain of anterior cruciate ligament of right knee, subsequent encounter (04/08/18) Physical Therapy Treatment Note PT-OP-A Visit Information Start: 02/11/18 09:30 Freq: Status: Active Protocol: Document 04/08/18 10:30 RCC (Rec: 04/08/18 17:43 RCC [email or web address]) Out-Patient Physical Therapy Visit Information Visit Information Visit Type Treatment Note Visit Start Time 09:45 Visit Stop Time 10:40 Total Visit Minutes 55 Visit Number 23 Number of CAFE SERVER Visits 0 Evaluation Information Evaluation Date 01/01/18 PT-OP-C Subjective Start: 02/11/18 09:30 Freq: Status: Active Protocol: Document 04/08/18 10:30 RCC (Rec: 04/08/18 17:43 RCC [email or web address]) OP-PT Subjective Patient Comments Patient Comments Pt did do a small jog about 30 ft and states it felt good. PT-OP-K Range of Motion Start: 02/11/18 09:30 Freq: Status: Active Protocol: Document 04/08/18 10:30 RCC (Rec: 04/08/18 17:43 RCC [email or web address]) Knee Goniometric Range of Motion Knee Measured in Degrees Right Flexion Active (degrees) 137 Extension Active (degrees) 2 Extension Passive (degrees) 0 PT-OP-Q Treatments Start: 02/11/18 09:30 Freq: Status: Active Protocol: Document 04/08/18 10:30 RCC (Rec: 04/08/18 17:43 RCC [email or web address]) Cardio Equipment Elliptical Duration (Minutes) 6 Resistance 6 Other fwd 3', bkwd 3' Gym Equipment Sport Cord 4 Exercise Details DL hops Cord/Resistance blue resistance Reps/Duration 2 min Therapeutic Exercises Standing Exercises 9 Standing Exercise Name Step off with focus on landing Side right Equipment Used 5 step Reps/Minutes 1x10 8 Standing Exercise Name SL fwd/bkwd jumps Side right Reps/Minutes 2x10 Manual Therapy Treatment Soft Tissue Mobilization 3 Body Location R knee scar tissue Mobilization Type Rolling Intensity/Depth Moderate Body Position Supine 2 Body Location R quadriceps Mobilization Type Rolling Body Position Supine Comments Rolling stick 1 Body Location Psoas & iliacus (R) Mobilization Type Sustained Pressure Intensity/Depth Deep Body Position Supine Comments distal Joint Mobilizations 1 Joint Patellofemoral (R) Direction medial, superior, inferior Body Position Supine PT-OP-R Modalities Start: 02/11/18 09:30 Freq: Status: Active Protocol: Document 04/08/18 10:30 RCC (Rec: 04/08/18 17:43 RCC [email or web address]) Hot Pack/Cold Pack Treatment Cold Pack Location R Knee Patient Position Prone Treatment Duration (minutes) 10 Patient Tolerance Good Comments 5 lb AW around ankle PT-OP-T Assessment and Plan Start: 02/11/18 09:30 Freq: Status: Active Protocol: Document 04/08/18 10:30 RCC (Rec: 04/08/18 17:43 RCC [email or web address]) Physical Therapy Assessment Assessment Summary Assessment Pt with slight loss of ROM with cold measurement of AROM of the R knee, lacking 2 degrees of extension. PROM to 0 degrees achieved. Pt tolerated SL landing and light jumps forward and backward, requiring occasional cuing for bent knee mechanics. Physical Therapy Plan Frequency and Duration Frequency of Treatment 2x/Week Duration of Treatment 12 weeks Plan of Care Start Date 01/01/18 Plan of Care End Date 04/24/18 Next Visit Focus/Plan Next Note Type Treatment Note Next Visit Plan progress SL hops/jumps, body mechanics, ROM.
--- NOTE | 2018-04-10 10:30 | PT.OTN ---
Current Diagnoses Stiffness of right knee, not elsewhere classified (04/10/18) Muscle weakness (generalized) (04/10/18) Other abnormalities of gait and mobility (04/10/18) Sprain of anterior cruciate ligament of right knee, subsequent encounter (04/10/18) Physical Therapy Treatment Note PT-OP-A Visit Information Start: 02/11/18 09:30 Freq: Status: Active Protocol: Document 04/10/18 10:30 RCC (Rec: 04/10/18 14:32 RCC [email or web address]) Out-Patient Physical Therapy Visit Information Visit Information Visit Type Treatment Note Visit Start Time 09:45 Visit Stop Time 10:30 Total Visit Minutes 45 Visit Number 24 Number of BILLING CLERK Visits 0 Evaluation Information Evaluation Date 01/01/18 PT-OP-C Subjective Start: 02/11/18 09:30 Freq: Status: Active Protocol: Document 04/10/18 10:30 RCC (Rec: 04/10/18 14:32 RCC [email or web address]) OP-PT Subjective Patient Comments Patient Comments Pt feels like her knee is becoming less stiff. PT-OP-K Range of Motion Start: 02/11/18 09:30 Freq: Status: Active Protocol: Document 04/10/18 10:30 RCC (Rec: 04/10/18 14:32 RCC [email or web address]) Knee Goniometric Range of Motion Knee Measured in Degrees Right Flexion Active (degrees) 138 Extension Active (degrees) 1 Extension Passive (degrees) 0 PT-OP-Q Treatments Start: 02/11/18 09:30 Freq: Status: Active Protocol: Document 04/10/18 10:30 RCC (Rec: 04/10/18 14:32 RCC [email or web address]) Cardio Equipment Elliptical Duration (Minutes) 6 Resistance 6 Other fwd 3', bkwd 3' Therapeutic Exercises Standing Exercises 11 Standing Exercise Name Trampoline jumps- DL Side bilateral Equipment Used trampoline Reps/Minutes 2 min 8 Standing Exercise Name SL fwd/bkwd jumps Side right Reps/Minutes 2x10 Manual Therapy Treatment Soft Tissue Mobilization 4 Body Location R gluteals Mobilization Type Strumming Intensity/Depth Moderate Body Position Sidelying 3 Body Location R knee scar tissue Mobilization Type Rolling Intensity/Depth Moderate Body Position Supine 2 Body Location R quadriceps Mobilization Type Rolling Body Position Supine Comments Rolling stick 1 Body Location Psoas & iliacus (R) Mobilization Type Sustained Pressure Intensity/Depth Deep Body Position Supine Comments distal Joint Mobilizations 2 Joint Tibiofemoral Direction PA, AP Grade IV 1 Joint Patellofemoral (R) Direction medial, superior, inferior Body Position Supine PT-OP-R Modalities Start: 02/11/18 09:30 Freq: Status: Active Protocol: Document 04/08/18 10:30 RCC (Rec: 04/08/18 17:43 RCC [email or web address]) Hot Pack/Cold Pack Treatment Cold Pack Location R Knee Patient Position Prone Treatment Duration (minutes) 10 Patient Tolerance Good Comments 5 lb AW around ankle PT-OP-T Assessment and Plan Start: 02/11/18 09:30 Freq: Status: Active Protocol: Document 04/10/18 10:30 RCC (Rec: 04/10/18 14:32 RCC [email or web address]) Physical Therapy Assessment Assessment Summary Assessment Pt's ROM progressing toward 0 degrees, and able to tolerate trampoline jumps and SL forward and backward jumps without discomfort. Plan to progress toward light jogging next week if tolerable. Physical Therapy Plan Frequency and Duration Frequency of Treatment 2x/Week Duration of Treatment 12 weeks Plan of Care Start Date 01/01/18 Plan of Care End Date 04/24/18 Next Visit Focus/Plan Next Note Type Treatment Note Next Visit Plan R knee ROM, attempt jogging if tolerated this session well.
--- NOTE | 2018-04-16 16:55 | PT.OTN ---
Current Diagnoses Stiffness of right knee, not elsewhere classified (04/16/18) Muscle weakness (generalized) (04/16/18) Other abnormalities of gait and mobility (04/16/18) Sprain of anterior cruciate ligament of right knee, subsequent encounter (04/16/18) Physical Therapy Treatment Note PT-OP-A Visit Information Start: 02/11/18 09:30 Freq: Status: Active Protocol: Document 04/16/18 16:55 RCC (Rec: 04/16/18 17:45 RCC [email or web address]) Out-Patient Physical Therapy Visit Information Visit Information Visit Type Treatment Note Visit Start Time 16:00 Visit Stop Time 16:55 Total Visit Minutes 55 Visit Number 25 Number of ADULT PSYCHIATRIST Visits 0 Evaluation Information Evaluation Date 01/01/18 PT-OP-C Subjective Start: 02/11/18 09:30 Freq: Status: Active Protocol: Document 04/16/18 16:55 RCC (Rec: 04/16/18 17:45 RCC [email or web address]) OP-PT Subjective Patient Comments Patient Comments Pt is sore today as she has been standing for several days , all day at the [employer]. PT-OP-K Range of Motion Start: 02/11/18 09:30 Freq: Status: Active Protocol: Document 04/16/18 16:55 RCC (Rec: 04/16/18 17:45 RCC [email or web address]) Knee Goniometric Range of Motion Knee Measured in Degrees Right Flexion Active (degrees) 135 Extension Active (degrees) 3 Extension Passive (degrees) 0 PT-OP-Q Treatments Start: 02/11/18 09:30 Freq: Status: Active Protocol: Document 04/16/18 16:55 RCC (Rec: 04/16/18 17:45 RCC [email or web address]) Cardio Equipment Elliptical Duration (Minutes) 6 Resistance 6 Treadmill Duration (Minutes) 5 Speed 2.5 and 5.1 Incline 0 Other run 60 sec x2 @ 5.1, walk @ 2. 5 rest of time Therapeutic Exercises Supine Exercises 1 Supine Exercise Name Psoas and Rectus Femoris stretch Side right Comments RLE off table Standing Exercises 1 Standing Exercise Name Gastroc stretch Side bilateral Equipment Used [id number] Manual Therapy Treatment Soft Tissue Mobilization 3 Body Location R knee scar tissue Mobilization Type Rolling Intensity/Depth Moderate Body Position Supine 2 Body Location R quadriceps Mobilization Type Rolling Body Position Supine 1 Body Location Psoas & iliacus (R) Mobilization Type Sustained Pressure Intensity/Depth Deep Body Position Supine Comments distal Joint Mobilizations 2 Joint Tibiofemoral Direction PA, AP Grade IV 1 Joint Patellofemoral (R) Direction medial, superior, inferior Body Position Supine PT-OP-R Modalities Start: 02/11/18 09:30 Freq: Status: Active Protocol: Document 04/16/18 16:55 RCC (Rec: 04/16/18 17:45 RCC [email or web address]) Hot Pack/Cold Pack Treatment Cold Pack Location R Knee Patient Position Prone Treatment Duration (minutes) 10 Patient Tolerance Good Comments 5 lb AW around ankle PT-OP-T Assessment and Plan Start: 02/11/18 09:30 Freq: Status: Active Protocol: Document 04/16/18 16:55 RCC (Rec: 04/16/18 17:45 RCC [email or web address]) Physical Therapy Assessment Assessment Summary Assessment Pt with decreased ROM of the R knee, likely due to prolonged standing. She was able to achieve 0 degrees of extension of the R knee after manual therapy. Pt tolerated 2 bouts of 1 min. jogging @ 5.1 mph and no anterior knee pain. Pt is still below her prior level of recreational activities. Physical Therapy Plan Frequency and Duration Frequency of Treatment 2x/Week Duration of Treatment 12 weeks Plan of Care Start Date 01/01/18 Plan of Care End Date 04/24/18 Next Visit Focus/Plan Next Note Type Progress Note Next Visit Plan reassess objective measures.
--- NOTE | 2018-04-29 16:45 | PT.OTN ---
Current Diagnoses Stiffness of right knee, not elsewhere classified (04/29/18) Muscle weakness (generalized) (04/29/18) Other abnormalities of gait and mobility (04/29/18) Sprain of anterior cruciate ligament of right knee, subsequent encounter (04/29/18) Physical Therapy Treatment Note PT-OP-A Visit Information Start: 02/11/18 09:30 Freq: Status: Active Protocol: Document 04/29/18 16:45 RCC (Rec: 04/29/18 18:14 RCC [email or web address]) Out-Patient Physical Therapy Visit Information Visit Information Visit Type Treatment Note Visit Start Time 16:00 Visit Stop Time 16:45 Total Visit Minutes 45 Visit Number 26 Number of CLASS A TRUCK DRIVER Visits 0 Evaluation Information Evaluation Date 01/01/18 PT-OP-B Current Condition Start: 04/29/18 17:51 Freq: Status: Active Protocol: Document 04/29/18 16:45 RCC (Rec: 04/29/18 18:14 RCC [email or web address]) Current Condition History of Current Condition History of Current Condition Pt is a 22 y/o female presenting to physical therapy s/p R ACL reconstruction ( patellar tendon autograft of ipsilateral side 12/18/2017). Treatment Goals Patient/Caregiver Goals Return to recreational activities (running, Crossfit) PT-OP-C Subjective Start: 02/11/18 09:30 Freq: Status: Active Protocol: Document 04/29/18 16:45 RCC (Rec: 04/29/18 18:14 RCC [email or web address]) OP-PT Subjective Patient Comments Patient Comments Pt states that her knee was sore while in [place], walking up to 5 miles per day. Her pain increased to a 5/10 at worst, but now she has been back she does not c/o any pain . OP-PT Pain Assessment Location Right Knee Intensity 5 Scale Used Numeric (1 - 10) Description- Other with prolonged walking PT-OP-F Manual Assessment Start: 04/29/18 17:51 Freq: Status: Active Protocol: Document 04/29/18 16:45 RCC (Rec: 04/29/18 18:14 RCC [email or web address]) Manual Assessments Joint Mobility Assessment Joint Mobility Assessment hypomobility of tibofemoral and patellofemoral joint. PT-OP-G Mobility & Gait Start: 04/29/18 17:51 Freq: Status: Active Protocol: Document 04/29/18 16:45 RCC (Rec: 04/29/18 18:14 RCC [email or web address]) OP Gait Assessment Comments Gait Comments slight decrease of R knee extension during gait. PT-OP-K Range of Motion Start: 02/11/18 09:30 Freq: Status: Active Protocol: Document 04/29/18 16:45 RCC (Rec: 04/29/18 18:14 RCC [email or web address]) Knee Goniometric Range of Motion Knee Measured in Degrees Right Flexion Active (degrees) 140 Extension Active (degrees) 2 Extension Passive (degrees) 0 Knee ROM Limitations Comments 2 degrees lacking of extension prior to manual therapy, 0 degrees after treatment. PT-OP-M Strength Start: 04/29/18 17:51 Freq: Status: Active Protocol: Document 04/29/18 16:45 RCC (Rec: 04/29/18 18:14 RCC [email or web address]) Hip Strength Hip Manual Muscle Testing Left Flexion (L2) 5 Normal Extension (S1) 4+ Good+ External Rotation 5 Normal Internal Rotation 5 Normal Right Flexion (L2) 4+ Good+ Extension (S1) 4+ Good+ External Rotation 4+ Good+ Internal Rotation 5 Normal Knee Strength Knee Manual Muscle Testing Left Flexion (S2) 5 Normal Extension (L3) 5 Normal Right Flexion (S2) 5 Normal Extension (L3) 4 Good Ankle/Foot Strength Ankle and Foot Manual Muscle Testing Right Dorsiflexion (L4) 5 Normal Left Dorsiflexion (L4) 5 Normal PT-OP-Q Treatments Start: 02/11/18 09:30 Freq: Status: Active Protocol: Document 04/29/18 16:45 RCC (Rec: 04/29/18 18:14 RCC [email or web address]) Gym Equipment Shuttle Recovery Unilateral Squats Details netural, IR, and ER foot positions Resistance 75 lbs (neutral), 50 lbs (IR and ER) Shuttle Recovery Platform Stable Bilateral Squats Resistance 125 lbs Shuttle Recovery Platform Stable Sport Cord 4 Exercise Details DL hops Cord/Resistance black resistance Reps/Duration 4 min 3 Exercise Details Squats Cord/Resistance black Reps/Duration 2x12 Therapeutic Exercises Standing Exercises 11 Standing Exercise Name Trampoline jumps- DL Side bilateral Equipment Used trampoline Reps/Minutes 2 min Manual Therapy Treatment Soft Tissue Mobilization 3 Body Location R knee scar tissue Mobilization Type Rolling Intensity/Depth Moderate Body Position Supine Joint Mobilizations 2 Joint Tibiofemoral Direction PA, AP Grade IV 1 Joint Patellofemoral (R) Direction medial, superior, inferior Body Position Supine Other Other Manual Treatments LE strength (MMT), R knee ROM, joint assessment. 12 min PT-OP-R Modalities Start: 02/11/18 09:30 Freq: Status: Active Protocol: Document 04/16/18 16:55 RCC (Rec: 04/16/18 17:45 RCC [email or web address]) Hot Pack/Cold Pack Treatment Cold Pack Location R Knee Patient Position Prone Treatment Duration (minutes) 10 Patient Tolerance Good Comments 5 lb AW around ankle PT-OP-T Assessment and Plan Start: 02/11/18 09:30 Freq: Status: Active Protocol: Document 04/29/18 16:45 RCC (Rec: 04/29/18 18:14 RCC [email or web address]) Physical Therapy Assessment Goals Three Impairment RLE weakness Chcf Goal (LTG) 5/5 manual muscle testing of the hip, knee and ankle RLE prior to d/c. LTG Duration 8 weeks Two Impairment R knee ROM [facility] Goal (LTG) 0-135 AROM R knee LTG Duration 8 weeks One Impairment Recreational activities [facility]cf Goal (LTG) Pt will return to running, hiking, gym workouts without pain or restrictions prior to d/c. LTG Duration 8 weeks Progress Towards Goals Progress Towards Goals Progressing Toward Goals Assessment Summary Assessment Pt has increased her activity level, but still with increased pain when walking ~5 miles. She has started interval training for jogging on firm surfaces. She has yet returned to the gym, but recently got a membership and will progress her activity level. Pt's R knee extension is still lacking occasionally, likely due to compliance issues with ROM activities which the pt was educated on needing to perform each day. Pt is still below her prior level of function, but continues to make progress with skilled therapy. She would benefit from ongoing training and progression of exercises to be able to reach her goal to return to prior activity level and to increased RLE strength and ROM of the R knee. Physical Therapy Plan Frequency and Duration Frequency of Treatment 2x/Week Duration of Treatment 8 weeks Plan of Care Start Date 04/29/18 Plan of Care End Date 06/24/18 Therapeutic Interventions Therapeutic Interventions Aquatic Therapy Balance Training Gait Training Home Exercise Program Joint Mobilizations Manual Therapy Neuromuscular Re-education Patient/Caregiver Education Self-Care/Home Management Soft Tissue Mobilization Taping Therapeutic Activities Therapeutic Exercises Modalities Cold Pack/Ice Massage Electric Stimulation Hot Packs Ultrasound Next Visit Focus/Plan Next Note Type Treatment Note Next Visit Plan progress R knee ROM, strength, return to recreational activities.
--- NOTE | 2018-04-29 16:45 | PT.OPPOC ---
Current Diagnoses Stiffness of right knee, not elsewhere classified (04/29/18) Muscle weakness (generalized) (04/29/18) Other abnormalities of gait and mobility (04/29/18) Sprain of anterior cruciate ligament of right knee, subsequent encounter (04/29/18) Provider Visit Care Team Role Provider Type Yonatan Queen MD Family Provider Non-Staff Primary Care Provider Specialty: Medical Address: [address] [place], [address] Email: Duane Hodges MD Attending Provider Non-Staff Specialty: Medical Address: [address] [facility], [place], [address] Email: Plan Of Care PT-OP-T Assessment and Plan Start: 02/11/18 09:30 Freq: Status: Active Protocol: Document 04/29/18 16:45 RCC (Rec: 04/29/18 18:14 RCC [email or web address]) Physical Therapy Assessment Goals Three Impairment RLE weakness Half-Way Goal (LTG) 5/5 manual muscle testing of the hip, knee and ankle RLE prior to d/c. LTG Duration 8 weeks Two Impairment R knee ROM Pad Extractor Tender Goal (LTG) 0-135 AROM R knee LTG Duration 8 weeks One Impairment Recreational activities Half-Way Goal (LTG) Pt will return to running, hiking, gym workouts without pain or restrictions prior to d/c. LTG Duration 8 weeks Progress Towards Goals Progress Towards Goals Progressing Toward Goals Assessment Summary Assessment Pt has increased her activity level, but still with increased pain when walking ~5 miles. She has started interval training for jogging on firm surfaces. She has yet returned to the gym, but recently got a membership and will progress her activity level. Pt's R knee extension is still lacking occasionally, likely due to compliance issues with ROM activities which the pt was educated on needing to perform each day. Pt is still below her prior level of function, but continues to make progress with skilled therapy. She would benefit from ongoing training and progression of exercises to be able to reach her goal to return to prior activity level and to increased RLE strength and ROM of the R knee. Physical Therapy Plan Frequency and Duration Frequency of Treatment 2x/Week Duration of Treatment 8 weeks Plan of Care Start Date 04/29/18 Plan of Care End Date 06/24/18 Therapeutic Interventions Therapeutic Interventions Aquatic Therapy Balance Training Gait Training Home Exercise Program Joint Mobilizations Manual Therapy Neuromuscular Re-education Patient/Caregiver Education Self-Care/Home Management Soft Tissue Mobilization Taping Therapeutic Activities Therapeutic Exercises Modalities Cold Pack/Ice Massage Electric Stimulation Hot Packs Ultrasound Next Visit Focus/Plan Next Note Type Treatment Note Next Visit Plan progress R knee ROM, strength, return to recreational activities. Plan of Care Dates Plan of Care Start Date 04/29/18 Plan of Care End Date 06/24/18 Please Sign and Return: I have reviewed this Plan of Care and certify that the skilled therapy services above are required to meet the patient?s needs. Physician Signature Date Printed Name and Credentials Clinical Instructor Signature Printed Name and Credentials
--- NOTE | 2018-05-01 16:00 | PT.OTN ---
Current Diagnoses Stiffness of right knee, not elsewhere classified (05/01/18) Muscle weakness (generalized) (05/01/18) Other abnormalities of gait and mobility (05/01/18) Sprain of anterior cruciate ligament of right knee, subsequent encounter (05/01/18) Physical Therapy Treatment Note PT-OP-A Visit Information Start: 02/11/18 09:30 Freq: Status: Active Protocol: Document 05/01/18 16:00 [facility] (Rec: 05/01/18 16:10 [email or web address]) Out-Patient Physical Therapy Visit Information Visit Information Visit Type Treatment Note Visit Start Time 16:00 Visit Stop Time 16:40 Total Visit Minutes 40 Visit Number 27 Number of CLINICAL RESOURCE COORDINATOR Visits 0 Evaluation Information Evaluation Date 01/01/18 PT-OP-B Current Condition Start: 04/29/18 17:51 Freq: Status: Active Protocol: Document 04/29/18 16:45 [facility] (Rec: 04/29/18 18:14 [facility] [email or web address]) Current Condition History of Current Condition History of Current Condition Pt is a 22 y/o female presenting to physical therapy s/p R ACL reconstruction ( patellar tendon autograft of ipsilateral side 12/18/2017). Treatment Goals Patient/Caregiver Goals Return to recreational activities (running, Crossfit) PT-OP-C Subjective Start: 02/11/18 09:30 Freq: Status: Active Protocol: Document 05/01/18 16:00 [facility] (Rec: 05/01/18 16:10 [email or web address]) OP-PT Subjective Patient Comments Patient Comments Pt was sore after last session , no new complaints. PT-OP-F Manual Assessment Start: 04/29/18 17:51 Freq: Status: Active Protocol: Document 04/29/18 16:45 [facility] (Rec: 04/29/18 18:14 [facility] [email or web address]) Manual Assessments Joint Mobility Assessment Joint Mobility Assessment hypomobility of tibofemoral and patellofemoral joint. PT-OP-G Mobility & Gait Start: 04/29/18 17:51 Freq: Status: Active Protocol: Document 04/29/18 16:45 [facility] (Rec: 04/29/18 18:14 [facility] [email or web address]) OP Gait Assessment Comments Gait Comments slight decrease of R knee extension during gait. PT-OP-K Range of Motion Start: 02/11/18 09:30 Freq: Status: Active Protocol: Document 04/29/18 16:45 [facility] (Rec: 04/29/18 18:14 [facility] [email or web address]) Knee Goniometric Range of Motion Knee Measured in Degrees Right Flexion Active (degrees) 140 Extension Active (degrees) 2 Extension Passive (degrees) 0 Knee ROM Limitations Comments 2 degrees lacking of extension prior to manual therapy, 0 degrees after treatment. PT-OP-M Strength Start: 04/29/18 17:51 Freq: Status: Active Protocol: Document 04/29/18 16:45 [facility] (Rec: 04/29/18 18:14 [facility] [email or web address]) Hip Strength Hip Manual Muscle Testing Left Flexion (L2) 5 Normal Extension (S1) 4+ Good+ External Rotation 5 Normal Internal Rotation 5 Normal Right Flexion (L2) 4+ Good+ Extension (S1) 4+ Good+ External Rotation 4+ Good+ Internal Rotation 5 Normal Knee Strength Knee Manual Muscle Testing Left Flexion (S2) 5 Normal Extension (L3) 5 Normal Right Flexion (S2) 5 Normal Extension (L3) 4 Good Ankle/Foot Strength Ankle and Foot Manual Muscle Testing Right Dorsiflexion (L4) 5 Normal Left Dorsiflexion (L4) 5 Normal PT-OP-Q Treatments Start: 02/11/18 09:30 Freq: Status: Active Protocol: Document 05/01/18 16:00 [facility] (Rec: 05/01/18 16:10 [facility] [email or web address]) Cardio Equipment Treadmill Duration (Minutes) 5 Speed 2.5 Incline 0 Other walking Gym Equipment Shuttle Recovery Unilateral Squats Details netural, IR, and ER foot positions Resistance 100 lbs (neutral), 75 lbs (IR and ER) Shuttle Recovery Platform Stable Bilateral Squats Resistance 137 lbs Shuttle Recovery Platform Stable Sport Cord 4 Exercise Details DL hops Cord/Resistance black resistance Reps/Duration 4 min 1 Exercise Details lunges with cord resistance Cord/Resistance black Therapeutic Exercises Standing Exercises 11 Standing Exercise Name Trampoline jumps- DL Side bilateral Equipment Used trampoline Reps/Minutes 2 min 9 Standing Exercise Name lateral step ups Side right Equipment Used BOSU Reps/Minutes 1x10 4 Standing Exercise Name TKE Side right Resistance L3 Reps/Minutes 30 reps Manual Therapy Treatment Joint Mobilizations 2 Joint Tibiofemoral Direction PA, AP Grade IV 1 Joint Patellofemoral (R) Direction medial, superior, inferior Body Position Supine PT-OP-R Modalities Start: 02/11/18 09:30 Freq: Status: Active Protocol: Document 04/16/18 16:55 [facility] (Rec: 04/16/18 17:45 [facility] [email or web address]) Hot Pack/Cold Pack Treatment Cold Pack Location R Knee Patient Position Prone Treatment Duration (minutes) 10 Patient Tolerance Good Comments 5 lb AW around ankle PT-OP-T Assessment and Plan Start: 02/11/18 09:30 Freq: Status: Active Protocol: Document 05/01/18 16:00 [facility] (Rec: 05/01/18 16:10 [facility] [email or web address]) Physical Therapy Assessment Assessment Summary Assessment Pt with less tightness of the R knee with extension, but does still require manual therapy to achieve neutral. Medial quadriceps are active, but still fatiguing quickly. Physical Therapy Plan Frequency and Duration Frequency of Treatment 2x/Week Duration of Treatment 8 weeks Plan of Care Start Date 04/29/18 Plan of Care End Date 06/24/18 Next Visit Focus/Plan Next Note Type Treatment Note Next Visit Plan progress R knee ROM, strength, return to recreational activities.
--- NOTE | 2018-05-06 16:00 | PT.OTN ---
Current Diagnoses Stiffness of right knee, not elsewhere classified (05/06/18) Muscle weakness (generalized) (05/06/18) Other abnormalities of gait and mobility (05/06/18) Sprain of anterior cruciate ligament of right knee, subsequent encounter (05/06/18) Physical Therapy Treatment Note PT-OP-A Visit Information Start: 02/11/18 09:30 Freq: Status: Active Protocol: Document 05/06/18 16:00 [facility] (Rec: 05/07/18 09:35 [email or web address]) Out-Patient Physical Therapy Visit Information Visit Information Visit Type Treatment Note Visit Start Time 15:15 Visit Stop Time 16:00 Total Visit Minutes 45 Visit Number 28 Number of ONLINE AFFILIATE MARKETING MANAGER Visits 0 Evaluation Information Evaluation Date 01/01/18 PT-OP-B Current Condition Start: 04/29/18 17:51 Freq: Status: Active Protocol: Document 04/29/18 16:45 [facility] (Rec: 04/29/18 18:14 [facility] [email or web address]) Current Condition History of Current Condition History of Current Condition Pt is a 22 y/o female presenting to physical therapy s/p R ACL reconstruction ( patellar tendon autograft of ipsilateral side 12/18/2017). Treatment Goals Patient/Caregiver Goals Return to recreational activities (running, Crossfit) PT-OP-C Subjective Start: 02/11/18 09:30 Freq: Status: Active Protocol: Document 05/06/18 16:00 [facility] (Rec: 05/07/18 09:35 [facility] [email or web address]) OP-PT Subjective Patient Comments Patient Comments Pt ran in intervals yesterday of 30 sec to 1 min, she is a little sore in her hip flexors and buttock on the R, no knee pain. PT-OP-F Manual Assessment Start: 04/29/18 17:51 Freq: Status: Active Protocol: Document 04/29/18 16:45 [facility] (Rec: 04/29/18 18:14 [facility] [email or web address]) Manual Assessments Joint Mobility Assessment Joint Mobility Assessment hypomobility of tibofemoral and patellofemoral joint. PT-OP-G Mobility & Gait Start: 04/29/18 17:51 Freq: Status: Active Protocol: Document 04/29/18 16:45 [facility] (Rec: 04/29/18 18:14 [facility] [email or web address]) OP Gait Assessment Comments Gait Comments slight decrease of R knee extension during gait. PT-OP-K Range of Motion Start: 02/11/18 09:30 Freq: Status: Active Protocol: Document 04/29/18 16:45 [facility] (Rec: 04/29/18 18:14 [facility] [email or web address]) Knee Goniometric Range of Motion Knee Measured in Degrees Right Flexion Active (degrees) 140 Extension Active (degrees) 2 Extension Passive (degrees) 0 Knee ROM Limitations Comments 2 degrees lacking of extension prior to manual therapy, 0 degrees after treatment. PT-OP-M Strength Start: 04/29/18 17:51 Freq: Status: Active Protocol: Document 04/29/18 16:45 [facility] (Rec: 04/29/18 18:14 [facility] [email or web address]) Hip Strength Hip Manual Muscle Testing Left Flexion (L2) 5 Normal Extension (S1) 4+ Good+ External Rotation 5 Normal Internal Rotation 5 Normal Right Flexion (L2) 4+ Good+ Extension (S1) 4+ Good+ External Rotation 4+ Good+ Internal Rotation 5 Normal Knee Strength Knee Manual Muscle Testing Left Flexion (S2) 5 Normal Extension (L3) 5 Normal Right Flexion (S2) 5 Normal Extension (L3) 4 Good Ankle/Foot Strength Ankle and Foot Manual Muscle Testing Right Dorsiflexion (L4) 5 Normal Left Dorsiflexion (L4) 5 Normal PT-OP-Q Treatments Start: 02/11/18 09:30 Freq: Status: Active Protocol: Document 05/06/18 16:00 [facility] (Rec: 05/07/18 09:35 [facility] [email or web address]) Cardio Equipment Treadmill Duration (Minutes) 5 Speed 2.5, 5.1 Incline 0 Other walking and running (run 1 min ) Gym Equipment Sport Cord 1 Exercise Details lunges with cord resistance Cord/Resistance black Comments onto BOSU Therapeutic Exercises Standing Exercises 12 Standing Exercise Name lunges on firm Side bilateral Equipment Used // bars Comments to increase knee flexion and hip extension on the R Manual Therapy Treatment Soft Tissue Mobilization 5 Body Location R piriformis Mobilization Type Strumming Intensity/Depth Deep Body Position Sidelying 4 Body Location R gluteals Mobilization Type Strumming Intensity/Depth Deep Body Position Sidelying 2 Body Location R quadriceps Mobilization Type Rolling Body Position Supine 1 Body Location Psoas & iliacus (R) Mobilization Type Sustained Pressure Intensity/Depth Deep Body Position Supine Comments distal Joint Mobilizations 2 Joint Tibiofemoral Direction PA, AP Grade IV 1 Joint Patellofemoral (R) Direction medial, superior, inferior Body Position Supine PT-OP-R Modalities Start: 02/11/18 09:30 Freq: Status: Active Protocol: Document 04/16/18 16:55 [facility] (Rec: 04/16/18 17:45 [facility] [email or web address]) Hot Pack/Cold Pack Treatment Cold Pack Location R Knee Patient Position Prone Treatment Duration (minutes) 10 Patient Tolerance Good Comments 5 lb AW around ankle PT-OP-T Assessment and Plan Start: 02/11/18 09:30 Freq: Status: Active Protocol: Document 05/06/18 16:00 [facility] (Rec: 05/07/18 09:35 [facility] [email or web address]) Physical Therapy Assessment Assessment Summary Assessment Pt with increased tension in R hip flexors and piriformis likely due to increased running intensity. Pt still with hypomobility of the tibiofemoral joint, limiting extension of the R knee but able to achieve full extension at end of session. Physical Therapy Plan Frequency and Duration Frequency of Treatment 2x/Week Duration of Treatment 8 weeks Plan of Care Start Date 04/29/18 Plan of Care End Date 06/24/18 Next Visit Focus/Plan Next Note Type Treatment Note Next Visit Plan prog. strength, knee ROM (R) s /p ACL recontruction R knee.
--- NOTE | 2018-05-08 16:00 | PT.OTN ---
Current Diagnoses Stiffness of right knee, not elsewhere classified (05/08/18) Muscle weakness (generalized) (05/08/18) Other abnormalities of gait and mobility (05/08/18) Sprain of anterior cruciate ligament of right knee, subsequent encounter (05/08/18) Physical Therapy Treatment Note PT-OP-A Visit Information Start: 02/11/18 09:30 Freq: Status: Active Protocol: Document 05/08/18 16:00 [facility] (Rec: 05/10/18 16:34 [facility] [email or web address]) Out-Patient Physical Therapy Visit Information Visit Information Visit Type Treatment Note Visit Start Time 15:15 Visit Stop Time 16:00 Total Visit Minutes 45 Visit Number 29 Number of URBAN DESIGN CONSULTANT Visits 0 Evaluation Information Evaluation Date 01/01/18 PT-OP-B Current Condition Start: 04/29/18 17:51 Freq: Status: Active Protocol: Document 04/29/18 16:45 [facility] (Rec: 04/29/18 18:14 [facility] [email or web address]) Current Condition History of Current Condition History of Current Condition Pt is a 22 y/o female presenting to physical therapy s/p R ACL reconstruction ( patellar tendon autograft of ipsilateral side 12/18/2017). Treatment Goals Patient/Caregiver Goals Return to recreational activities (running, Crossfit) PT-OP-C Subjective Start: 02/11/18 09:30 Freq: Status: Active Protocol: Document 05/08/18 16:00 [facility] (Rec: 05/10/18 16:34 [facility] [email or web address]) OP-PT Subjective Patient Comments Patient Comments pt notes that her R hip is sore today, more-so than on Friday. PT-OP-F Manual Assessment Start: 04/29/18 17:51 Freq: Status: Active Protocol: Document 05/08/18 16:00 [facility] (Rec: 05/10/18 16:34 [facility] [email or web address]) Manual Assessments Soft Tissue Assessment Soft Tissue Mobility Assessment moderate tension in gluteals and piriformis on the R PT-OP-G Mobility & Gait Start: 04/29/18 17:51 Freq: Status: Active Protocol: Document 04/29/18 16:45 [facility] (Rec: 04/29/18 18:14 [facility] [email or web address]) OP Gait Assessment Comments Gait Comments slight decrease of R knee extension during gait. PT-OP-K Range of Motion Start: 02/11/18 09:30 Freq: Status: Active Protocol: Document 04/29/18 16:45 [facility] (Rec: 04/29/18 18:14 [facility] [email or web address]) Knee Goniometric Range of Motion Knee Measured in Degrees Right Flexion Active (degrees) 140 Extension Active (degrees) 2 Extension Passive (degrees) 0 Knee ROM Limitations Comments 2 degrees lacking of extension prior to manual therapy, 0 degrees after treatment. PT-OP-M Strength Start: 04/29/18 17:51 Freq: Status: Active Protocol: Document 04/29/18 16:45 [facility] (Rec: 04/29/18 18:14 [facility] [email or web address]) Hip Strength Hip Manual Muscle Testing Left Flexion (L2) 5 Normal Extension (S1) 4+ Good+ External Rotation 5 Normal Internal Rotation 5 Normal Right Flexion (L2) 4+ Good+ Extension (S1) 4+ Good+ External Rotation 4+ Good+ Internal Rotation 5 Normal Knee Strength Knee Manual Muscle Testing Left Flexion (S2) 5 Normal Extension (L3) 5 Normal Right Flexion (S2) 5 Normal Extension (L3) 4 Good Ankle/Foot Strength Ankle and Foot Manual Muscle Testing Right Dorsiflexion (L4) 5 Normal Left Dorsiflexion (L4) 5 Normal PT-OP-Q Treatments Start: 02/11/18 09:30 Freq: Status: Active Protocol: Document 05/08/18 16:00 [facility] (Rec: 05/10/18 16:34 [facility] [email or web address]) Gym Equipment Shuttle Recovery Unilateral Squats Details netural, IR, and ER foot positions Resistance 100 lbs (neutral), 75 lbs (IR and ER) Shuttle Recovery Platform Stable Bilateral Squats Resistance 137 lbs Shuttle Recovery Platform Stable Shuttle Balance 1 Details red- DL netural and semi- tandem (R posterior) squats Reps/Duration 15 each Manual Therapy Treatment Soft Tissue Mobilization 5 Body Location R piriformis Mobilization Type Strumming Intensity/Depth Deep Body Position Sidelying 4 Body Location R gluteals Mobilization Type Strumming Intensity/Depth Deep Body Position Sidelying 3 Body Location R knee scar tissue Mobilization Type Rolling Intensity/Depth Moderate Body Position Supine 1 Body Location Psoas & iliacus (R) Mobilization Type Sustained Pressure Intensity/Depth Deep Body Position Supine Comments distal Joint Mobilizations 2 Joint Tibiofemoral Direction PA, AP Grade IV 1 Joint Patellofemoral (R) Direction medial, superior, inferior Body Position Supine PT-OP-R Modalities Start: 02/11/18 09:30 Freq: Status: Active Protocol: Document 04/16/18 16:55 [facility] (Rec: 04/16/18 17:45 [facility] [email or web address]) Hot Pack/Cold Pack Treatment Cold Pack Location R Knee Patient Position Prone Treatment Duration (minutes) 10 Patient Tolerance Good Comments 5 lb AW around ankle PT-OP-T Assessment and Plan Start: 02/11/18 09:30 Freq: Status: Active Protocol: Document 05/08/18 16:00 [facility] (Rec: 05/10/18 16:34 [facility] [email or web address]) Physical Therapy Assessment Assessment Summary Assessment Increased tension in gluteals and piriformis likely due to increased activity this past week, with starting interval running training. Pt continues to have R knee stiffness, with limited extension but able to achieve 0 deg with self stretching. Physical Therapy Plan Frequency and Duration Frequency of Treatment 2x/Week Duration of Treatment 8 weeks Plan of Care Start Date 04/29/18 Plan of Care End Date 06/24/18 Next Visit Focus/Plan Next Note Type Treatment Note Next Visit Plan prog. strength, knee ROM (R) s /p ACL recontruction R knee.
--- NOTE | 2018-05-13 16:21 | PT.OTN ---
Current Diagnoses Stiffness of right knee, not elsewhere classified (05/13/18) Muscle weakness (generalized) (05/13/18) Other abnormalities of gait and mobility (05/13/18) Sprain of anterior cruciate ligament of right knee, subsequent encounter (05/13/18) Physical Therapy Treatment Note PT-OP-A Visit Information Start: 02/11/18 09:30 Freq: Status: Active Protocol: Document 05/13/18 16:14 [facility] (Rec: 05/13/18 16:21 [facility] [email or web address]) Out-Patient Physical Therapy Visit Information Visit Information Visit Type Treatment Note Visit Start Time 08:15 Visit Stop Time 09:10 Total Visit Minutes 55 Visit Number 30 Number of MINE DEPUTY Visits 0 PT-OP-B Current Condition Start: 04/29/18 17:51 Freq: Status: Active Protocol: Document 04/29/18 16:45 [facility] (Rec: 04/29/18 18:14 [facility] [email or web address]) Current Condition History of Current Condition History of Current Condition Pt is a 22 y/o female presenting to physical therapy s/p R ACL reconstruction ( patellar tendon autograft of ipsilateral side 12/18/2017). Treatment Goals Patient/Caregiver Goals Return to recreational activities (running, Crossfit) PT-OP-C Subjective Start: 02/11/18 09:30 Freq: Status: Active Protocol: Document 05/13/18 16:14 [facility] (Rec: 05/13/18 16:21 [facility] [email or web address]) OP-PT Subjective Patient Comments Patient Comments Reports her knee is stiff today. She saw Friday. Reports she has not been doing much since last week and will be out of town later this week, so plans to resume exercising when she gets back. PT-OP-F Manual Assessment Start: 04/29/18 17:51 Freq: Status: Active Protocol: Document 05/08/18 16:00 [facility] (Rec: 05/10/18 16:34 [facility] [email or web address]) Manual Assessments Soft Tissue Assessment Soft Tissue Mobility Assessment moderate tension in gluteals and piriformis on the R PT-OP-G Mobility & Gait Start: 04/29/18 17:51 Freq: Status: Active Protocol: Document 04/29/18 16:45 [facility] (Rec: 04/29/18 18:14 [facility] [email or web address]) OP Gait Assessment Comments Gait Comments slight decrease of R knee extension during gait. PT-OP-K Range of Motion Start: 02/11/18 09:30 Freq: Status: Active Protocol: Document 04/29/18 16:45 [facility] (Rec: 04/29/18 18:14 [facility] [email or web address]) Knee Goniometric Range of Motion Knee Measured in Degrees Right Flexion Active (degrees) 140 Extension Active (degrees) 2 Extension Passive (degrees) 0 Knee ROM Limitations Comments 2 degrees lacking of extension prior to manual therapy, 0 degrees after treatment. PT-OP-M Strength Start: 04/29/18 17:51 Freq: Status: Active Protocol: Document 04/29/18 16:45 [facility] (Rec: 04/29/18 18:14 [facility] [email or web address]) Hip Strength Hip Manual Muscle Testing Left Flexion (L2) 5 Normal Extension (S1) 4+ Good+ External Rotation 5 Normal Internal Rotation 5 Normal Right Flexion (L2) 4+ Good+ Extension (S1) 4+ Good+ External Rotation 4+ Good+ Internal Rotation 5 Normal Knee Strength Knee Manual Muscle Testing Left Flexion (S2) 5 Normal Extension (L3) 5 Normal Right Flexion (S2) 5 Normal Extension (L3) 4 Good Ankle/Foot Strength Ankle and Foot Manual Muscle Testing Right Dorsiflexion (L4) 5 Normal Left Dorsiflexion (L4) 5 Normal PT-OP-Q Treatments Start: 02/11/18 09:30 Freq: Status: Active Protocol: Document 05/13/18 16:14 [facility] (Rec: 05/13/18 16:21 [facility] [email or web address]) Therapeutic Exercises Sitting Exercises 1 Sitting Exercise Name HS stretch with quad set Standing Exercises 8 Standing Exercise Name calf stretch 7 Standing Exercise Name TKE Equipment Used lvl 3 6 Standing Exercise Name gait press at wall Comments stopped d/t opposite ant hip pain Manual Therapy Treatment Soft Tissue Mobilization 5 Body Location R HS & calf Mobilization Type Rolling Sustained Pressure Comments FM with knee ext Joint Mobilizations 4 Joint innominate Direction caudal FM L 3 Joint hip R Direction on axis ER 2 Joint Tibiofemoral Direction AP onto femur & tibia FM APs Grade IV 1 Joint Patellofemoral (R) Direction medial, superior, inferior Body Position Supine PT-OP-R Modalities Start: 02/11/18 09:30 Freq: Status: Active Protocol: Document 05/13/18 16:14 [facility] (Rec: 05/13/18 16:21 [facility] [email or web address]) Hot Pack/Cold Pack Treatment Cold Pack Location ant & post knee Patient Position Hooklying Treatment Duration (minutes) 10 PT-OP-T Assessment and Plan Start: 02/11/18 09:30 Freq: Status: Active Protocol: Document 05/13/18 16:14 [facility] (Rec: 05/13/18 16:21 [facility] [email or web address]) Physical Therapy Assessment Goals Three Impairment RLE weakness Intermediate Goal (LTG) 5/5 manual muscle testing of the hip, knee and ankle RLE prior to d/c. LTG Duration 8 weeks Two Impairment R knee ROM Intermediate Goal (LTG) 0-135 AROM R knee LTG Duration 8 weeks One Impairment Recreational activities Intermediate Goal (LTG) Pt will return to running, hiking, gym workouts without pain or restrictions prior to d/c. LTG Duration 8 weeks Assessment Summary Assessment Pt has overall inc tension from pelvis , likely contributing to dec knee mobility. Pt has dec core faciliation & dec terminal knee ext strength with weakness in quads, glutes > solues. Physical Therapy Plan Frequency and Duration Frequency of Treatment 2x/Week Duration of Treatment 8 weeks Plan of Care Start Date 04/29/18 Plan of Care End Date 06/24/18 Next Visit Focus/Plan Next Note Type Treatment Note Next Visit Plan Cont to advance terminal ext range & strength
--- NOTE | 2018-05-22 10:18 | PT.OTN ---
Current Diagnoses Stiffness of right knee, not elsewhere classified (05/22/18) Muscle weakness (generalized) (05/22/18) Other abnormalities of gait and mobility (05/22/18) Sprain of anterior cruciate ligament of right knee, subsequent encounter (05/22/18) Physical Therapy Treatment Note PT-OP-A Visit Information Start: 02/11/18 09:30 Freq: Status: Active Protocol: Document 05/22/18 10:12 [facility] (Rec: 05/22/18 10:18 [facility] [email or web address]) Out-Patient Physical Therapy Visit Information Visit Information Visit Type Treatment Note Visit Start Time 08:15 Visit Stop Time 09:10 Total Visit Minutes 55 Visit Number 31 Number of INSET CUTTER Visits 0 PT-OP-B Current Condition Start: 04/29/18 17:51 Freq: Status: Active Protocol: Document 04/29/18 16:45 [facility] (Rec: 04/29/18 18:14 [facility] [email or web address]) Current Condition History of Current Condition History of Current Condition Pt is a 22 y/o female presenting to physical therapy s/p R ACL reconstruction ( patellar tendon autograft of ipsilateral side 12/18/2017). Treatment Goals Patient/Caregiver Goals Return to recreational activities (running, Crossfit) PT-OP-C Subjective Start: 02/11/18 09:30 Freq: Status: Active Protocol: Document 05/22/18 10:12 [facility] (Rec: 05/22/18 10:18 [facility] [email or web address]) OP-PT Subjective Patient Comments Patient Comments Reports she has been working on TKE exercise PT-OP-F Manual Assessment Start: 04/29/18 17:51 Freq: Status: Active Protocol: Document 05/08/18 16:00 [facility] (Rec: 05/10/18 16:34 [facility] [email or web address]) Manual Assessments Soft Tissue Assessment Soft Tissue Mobility Assessment moderate tension in gluteals and piriformis on the R PT-OP-G Mobility & Gait Start: 04/29/18 17:51 Freq: Status: Active Protocol: Document 04/29/18 16:45 [facility] (Rec: 04/29/18 18:14 [facility] [email or web address]) OP Gait Assessment Comments Gait Comments slight decrease of R knee extension during gait. PT-OP-K Range of Motion Start: 02/11/18 09:30 Freq: Status: Active Protocol: Document 04/29/18 16:45 [facility] (Rec: 04/29/18 18:14 [facility] [email or web address]) Knee Goniometric Range of Motion Knee Measured in Degrees Right Flexion Active (degrees) 140 Extension Active (degrees) 2 Extension Passive (degrees) 0 Knee ROM Limitations Comments 2 degrees lacking of extension prior to manual therapy, 0 degrees after treatment. PT-OP-M Strength Start: 04/29/18 17:51 Freq: Status: Active Protocol: Document 04/29/18 16:45 [facility] (Rec: 04/29/18 18:14 [facility] [email or web address]) Hip Strength Hip Manual Muscle Testing Left Flexion (L2) 5 Normal Extension (S1) 4+ Good+ External Rotation 5 Normal Internal Rotation 5 Normal Right Flexion (L2) 4+ Good+ Extension (S1) 4+ Good+ External Rotation 4+ Good+ Internal Rotation 5 Normal Knee Strength Knee Manual Muscle Testing Left Flexion (S2) 5 Normal Extension (L3) 5 Normal Right Flexion (S2) 5 Normal Extension (L3) 4 Good Ankle/Foot Strength Ankle and Foot Manual Muscle Testing Right Dorsiflexion (L4) 5 Normal Left Dorsiflexion (L4) 5 Normal PT-OP-Q Treatments Start: 02/11/18 09:30 Freq: Status: Active Protocol: Document 05/22/18 10:12 [facility] (Rec: 05/22/18 10:18 [facility] [email or web address]) Therapeutic Exercises Standing Exercises 12 Standing Exercise Name lunges on firm Side bilateral Equipment Used fwd & back 10 Standing Exercise Name squat jumps Reps/Minutes 30 9 Standing Exercise Name Single leg hops R Reps/Minutes 30 5 Standing Exercise Name single leg squats in mirror Reps/Minutes 20 Manual Therapy Treatment Soft Tissue Mobilization 3 Body Location R knee scar tissue Mobilization Type Rolling Intensity/Depth Moderate Body Position Supine 2 Body Location ant knee Mobilization Type Myofascial Release PT-OP-R Modalities Start: 02/11/18 09:30 Freq: Status: Active Protocol: Document 05/22/18 10:12 [facility] (Rec: 05/22/18 10:18 [facility] [email or web address]) Hot Pack/Cold Pack Treatment Cold Pack Location ant & post knee Patient Position Hooklying Treatment Duration (minutes) 10 PT-OP-T Assessment and Plan Start: 02/11/18 09:30 Freq: Status: Active Protocol: Document 05/22/18 10:12 [facility] (Rec: 05/22/18 10:18 [facility] [email or web address]) Physical Therapy Assessment Goals Three Impairment RLE weakness Nursing Home Goal (LTG) 5/5 manual muscle testing of the hip, knee and ankle RLE prior to d/c. LTG Duration 8 weeks Two Impairment R knee ROM Nursing Home Goal (LTG) 0-135 AROM R knee LTG Duration 8 weeks One Impairment Recreational activities Casework Supervisor Goal (LTG) Pt will return to running, hiking, gym workouts without pain or restrictions prior to d/c. LTG Duration 8 weeks Assessment Summary Assessment Improved terminal knee extension strength this session, but pt cont to have weak quads & glutes. Physical Therapy Plan Frequency and Duration Frequency of Treatment 2x/Week Duration of Treatment 8 weeks Plan of Care Start Date 04/29/18 Plan of Care End Date 06/24/18 Next Visit Focus/Plan Next Note Type Treatment Note Next Visit Plan Cont to advance terminal ext range & strength
--- NOTE | 2018-05-29 16:00 | PT.OTN ---
Current Diagnoses Stiffness of right knee, not elsewhere classified (05/29/18) Muscle weakness (generalized) (05/29/18) Other abnormalities of gait and mobility (05/29/18) Sprain of anterior cruciate ligament of right knee, subsequent encounter (05/29/18) Physical Therapy Treatment Note PT-OP-A Visit Information Start: 02/11/18 09:30 Freq: Status: Active Protocol: Document 05/29/18 16:00 [facility] (Rec: 05/30/18 13:14 [facility] [email or web address]) Out-Patient Physical Therapy Visit Information Visit Information Visit Type Treatment Note Visit Start Time 15:15 Visit Stop Time 16:10 Total Visit Minutes 55 Visit Number 32 Number of BRAIN PICKER Visits 0 Evaluation Information Evaluation Date 01/01/18 PT-OP-B Current Condition Start: 04/29/18 17:51 Freq: Status: Active Protocol: Document 04/29/18 16:45 [facility] (Rec: 04/29/18 18:14 [facility] [email or web address]) Current Condition History of Current Condition History of Current Condition Pt is a 22 y/o female presenting to physical therapy s/p R ACL reconstruction ( patellar tendon autograft of ipsilateral side 12/18/2017). Treatment Goals Patient/Caregiver Goals Return to recreational activities (running, Crossfit) PT-OP-C Subjective Start: 02/11/18 09:30 Freq: Status: Active Protocol: Document 05/29/18 16:00 [facility] (Rec: 05/30/18 13:14 [facility] [email or web address]) OP-PT Subjective Patient Comments Patient Comments Pt got a foam roll and plans on doing various exercise soon to progress her strength and activity tolerance. She has been occasionally compliant with her HEP. PT-OP-F Manual Assessment Start: 04/29/18 17:51 Freq: Status: Active Protocol: Document 05/08/18 16:00 [facility] (Rec: 05/10/18 16:34 [facility] [email or web address]) Manual Assessments Soft Tissue Assessment Soft Tissue Mobility Assessment moderate tension in gluteals and piriformis on the R PT-OP-G Mobility & Gait Start: 04/29/18 17:51 Freq: Status: Active Protocol: Document 04/29/18 16:45 [facility] (Rec: 04/29/18 18:14 [facility] [email or web address]) OP Gait Assessment Comments Gait Comments slight decrease of R knee extension during gait. PT-OP-K Range of Motion Start: 02/11/18 09:30 Freq: Status: Active Protocol: Document 05/29/18 16:00 [facility] (Rec: 05/30/18 13:14 [facility] [email or web address]) Knee Goniometric Range of Motion Knee Measured in Degrees Right Extension Active (degrees) 2 Knee ROM Limitations Comments lacking 2 deg. of flexion in R knee initially, then to 0 deg . after manual therapy. PT-OP-M Strength Start: 04/29/18 17:51 Freq: Status: Active Protocol: Document 04/29/18 16:45 [facility] (Rec: 04/29/18 18:14 [facility] [email or web address]) Hip Strength Hip Manual Muscle Testing Left Flexion (L2) 5 Normal Extension (S1) 4+ Good+ External Rotation 5 Normal Internal Rotation 5 Normal Right Flexion (L2) 4+ Good+ Extension (S1) 4+ Good+ External Rotation 4+ Good+ Internal Rotation 5 Normal Knee Strength Knee Manual Muscle Testing Left Flexion (S2) 5 Normal Extension (L3) 5 Normal Right Flexion (S2) 5 Normal Extension (L3) 4 Good Ankle/Foot Strength Ankle and Foot Manual Muscle Testing Right Dorsiflexion (L4) 5 Normal Left Dorsiflexion (L4) 5 Normal PT-OP-Q Treatments Start: 02/11/18 09:30 Freq: Status: Active Protocol: Document 05/29/18 16:00 [facility] (Rec: 05/30/18 13:14 [facility] [email or web address]) Gym Equipment Shuttle Recovery Unilateral Squats Details netural, IR, and ER foot positions Resistance 100 lbs (neutral), 75 lbs (IR and ER) Shuttle Recovery Platform Stable Bilateral Squats Resistance 137 lbs Shuttle Recovery Platform Stable Sport Cord 3 Exercise Details split squat with lateral resistance from SC Cord/Resistance black Reps/Duration 10 each direction 1 Exercise Details lunges with cord resistance Cord/Resistance black Comments forward and backward Therapeutic Exercises Sitting Exercises 1 Sitting Exercise Name HS stretch with quad set Standing Exercises 9 Standing Exercise Name Single leg hops R Reps/Minutes 30 Manual Therapy Treatment Soft Tissue Mobilization 3 Body Location R knee scar tissue Mobilization Type Rolling Intensity/Depth Moderate Body Position Supine 2 Body Location ant knee and tibialis anterior Mobilization Type Myofascial Release Intensity/Depth Moderate Body Position Supine Joint Mobilizations 2 Joint Tibiofemoral Direction AP onto femur & tibia FM APs Grade IV 1 Joint Patellofemoral (R) Direction medial, superior, inferior Body Position Supine PT-OP-R Modalities Start: 02/11/18 09:30 Freq: Status: Active Protocol: Document 05/29/18 16:00 [facility] (Rec: 05/30/18 13:14 [facility] [email or web address]) Hot Pack/Cold Pack Treatment Cold Pack Location ant & post knee Patient Position Prone Treatment Duration (minutes) 10 Comments 5 lb AW on ankle PT-OP-T Assessment and Plan Start: 02/11/18 09:30 Freq: Status: Active Protocol: Document 05/29/18 16:00 [facility] (Rec: 05/30/18 13:14 [facility] [email or web address]) Physical Therapy Assessment Assessment Summary Assessment Pt with mild palpable VMO activation with leg press, but continues to come into the clinic with restricted extension, possibly due to less frequent time of compliance with HEP. Pt appears to have increased motivation for activity level, which should help restore prior level of function if compliant with exercises. Physical Therapy Plan Frequency and Duration Frequency of Treatment 2x/Week Duration of Treatment 8 weeks Plan of Care Start Date 04/29/18 Plan of Care End Date 06/24/18 Next Visit Focus/Plan Next Note Type Treatment Note Next Visit Plan prog. ROM to full extension without manual intervention, R knee stability, VMO and gluteal strength.
--- NOTE | 2018-06-03 10:40 | PT.OTN ---
Current Diagnoses Stiffness of right knee, not elsewhere classified (06/03/18) Muscle weakness (generalized) (06/03/18) Other abnormalities of gait and mobility (06/03/18) Sprain of anterior cruciate ligament of right knee, subsequent encounter (06/03/18) Physical Therapy Treatment Note PT-OP-A Visit Information Start: 02/11/18 09:30 Freq: Status: Active Protocol: Document 06/03/18 10:40 [facility] (Rec: 06/03/18 11:01 [facility] [email or web address]) Out-Patient Physical Therapy Visit Information Visit Information Visit Type Treatment Note Visit Start Time 09:45 Visit Stop Time 10:40 Total Visit Minutes 55 Visit Number 33 Number of LABOURERS Visits 0 Evaluation Information Evaluation Date 01/01/18 PT-OP-B Current Condition Start: 04/29/18 17:51 Freq: Status: Active Protocol: Document 04/29/18 16:45 [facility] (Rec: 04/29/18 18:14 [facility] [email or web address]) Current Condition History of Current Condition History of Current Condition Pt is a 22 y/o female presenting to physical therapy s/p R ACL reconstruction ( patellar tendon autograft of ipsilateral side 12/18/2017). Treatment Goals Patient/Caregiver Goals Return to recreational activities (running, Crossfit) PT-OP-C Subjective Start: 02/11/18 09:30 Freq: Status: Active Protocol: Document 06/03/18 10:40 [facility] (Rec: 06/03/18 11:01 [facility] [email or web address]) OP-PT Subjective Patient Comments Patient Comments Pt has been doing a lot of squats at home and work. She reports feeling tension in her HS and calf area when working on lunges and knee extension. PT-OP-F Manual Assessment Start: 04/29/18 17:51 Freq: Status: Active Protocol: Document 05/08/18 16:00 [facility] (Rec: 05/10/18 16:34 [facility] [email or web address]) Manual Assessments Soft Tissue Assessment Soft Tissue Mobility Assessment moderate tension in gluteals and piriformis on the R PT-OP-G Mobility & Gait Start: 04/29/18 17:51 Freq: Status: Active Protocol: Document 04/29/18 16:45 [facility] (Rec: 04/29/18 18:14 [facility] [email or web address]) OP Gait Assessment Comments Gait Comments slight decrease of R knee extension during gait. PT-OP-K Range of Motion Start: 02/11/18 09:30 Freq: Status: Active Protocol: Document 05/29/18 16:00 [facility] (Rec: 05/30/18 13:14 [facility] [email or web address]) Knee Goniometric Range of Motion Knee Measured in Degrees Right Extension Active (degrees) 2 Knee ROM Limitations Comments lacking 2 deg. of flexion in R knee initially, then to 0 deg . after manual therapy. PT-OP-M Strength Start: 04/29/18 17:51 Freq: Status: Active Protocol: Document 04/29/18 16:45 [facility] (Rec: 04/29/18 18:14 [facility] [email or web address]) Hip Strength Hip Manual Muscle Testing Left Flexion (L2) 5 Normal Extension (S1) 4+ Good+ External Rotation 5 Normal Internal Rotation 5 Normal Right Flexion (L2) 4+ Good+ Extension (S1) 4+ Good+ External Rotation 4+ Good+ Internal Rotation 5 Normal Knee Strength Knee Manual Muscle Testing Left Flexion (S2) 5 Normal Extension (L3) 5 Normal Right Flexion (S2) 5 Normal Extension (L3) 4 Good Ankle/Foot Strength Ankle and Foot Manual Muscle Testing Right Dorsiflexion (L4) 5 Normal Left Dorsiflexion (L4) 5 Normal PT-OP-Q Treatments Start: 02/11/18 09:30 Freq: Status: Active Protocol: Document 06/03/18 10:40 [facility] (Rec: 06/03/18 11:01 [facility] [email or web address]) Gym Equipment Shuttle Recovery Unilateral Squats Details netural, IR, and ER foot positions Resistance 100 lbs (neutral), 75 lbs (IR and ER) Shuttle Recovery Platform Stable Bilateral Squats Resistance 137 lbs Shuttle Recovery Platform Stable Sport Cord 2 Exercise Details SL standing- bending forward to touch toes Cord/Resistance black 1 Exercise Details lunges with cord resistance Cord/Resistance black Comments forward (onto BOSU) and backward Therapeutic Exercises Prone Exercises 4 Prone Exercise Name hip extension Side right Resistance 2 lb Equipment Used ankle weight Reps/Minutes 10 each Comments knee extended and flexed 3 Prone Exercise Name quad stretch Side bilateral Standing Exercises 13 Standing Exercise Name hip extension Side right Resistance L3 Reps/Minutes 10 8 Standing Exercise Name gastroc/soleus stretch Side bilateral Equipment Used JAZMÍN Manual Therapy Treatment Soft Tissue Mobilization 5 Body Location R HS & calf Mobilization Type Rolling Sustained Pressure Comments FM with knee ext 3 Body Location R knee scar tissue Mobilization Type Rolling Intensity/Depth Moderate Body Position Supine Joint Mobilizations 2 Joint Tibiofemoral Direction AP onto femur & tibia FM APs Grade IV 1 Joint Patellofemoral (R) Direction medial, superior, inferior Body Position Supine PT-OP-R Modalities Start: 02/11/18 09:30 Freq: Status: Active Protocol: Document 06/03/18 10:40 [facility] (Rec: 06/03/18 11:01 [facility] [email or web address]) Hot Pack/Cold Pack Treatment Cold Pack Location ant & post knee Patient Position Hooklying Treatment Duration (minutes) 10 PT-OP-T Assessment and Plan Start: 02/11/18 09:30 Freq: Status: Active Protocol: Document 06/03/18 10:40 [facility] (Rec: 06/03/18 11:01 [facility] [email or web address]) Physical Therapy Assessment Assessment Summary Assessment Pt with increased L anterior thigh and hip musculature with standing, and decreased activation of R gluteals with standing hip extension. Pt had increased gluteal activation with prone positioning. She continues to require manual therapy to advance her ROM during sessions, and demonstrates impaired muscular timing and activation. Physical Therapy Plan Frequency and Duration Frequency of Treatment 2x/Week Duration of Treatment 8 weeks Plan of Care Start Date 04/29/18 Plan of Care End Date 06/24/18 Next Visit Focus/Plan Next Note Type Treatment Note Next Visit Plan R knee strength, gluteal and core activation, progression toward recreational activities .
--- NOTE | 2018-06-05 10:35 | PT.OTN ---
Current Diagnoses Stiffness of right knee, not elsewhere classified (06/05/18) Muscle weakness (generalized) (06/05/18) Other abnormalities of gait and mobility (06/05/18) Sprain of anterior cruciate ligament of right knee, subsequent encounter (06/05/18) Physical Therapy Treatment Note PT-OP-A Visit Information Start: 02/11/18 09:30 Freq: Status: Active Protocol: Document 06/05/18 10:35 [facility] (Rec: 06/07/18 17:51 [facility] [email or web address]) Out-Patient Physical Therapy Visit Information Visit Information Visit Type Treatment Note Visit Start Time 09:45 Visit Stop Time 10:35 Total Visit Minutes 50 Visit Number 34 Number of RETAIL COORDINATOR Visits 0 Evaluation Information Evaluation Date 01/01/18 PT-OP-B Current Condition Start: 04/29/18 17:51 Freq: Status: Active Protocol: Document 04/29/18 16:45 [facility] (Rec: 04/29/18 18:14 [facility] [email or web address]) Current Condition History of Current Condition History of Current Condition Pt is a 22 y/o female presenting to physical therapy s/p R ACL reconstruction ( patellar tendon autograft of ipsilateral side 12/18/2017). Treatment Goals Patient/Caregiver Goals Return to recreational activities (running, Crossfit) PT-OP-C Subjective Start: 02/11/18 09:30 Freq: Status: Active Protocol: Document 06/05/18 10:35 [facility] (Rec: 06/07/18 17:51 [facility] [email or web address]) OP-PT Subjective Patient Comments Patient Comments Pt states that her lower leg still feels really tight with walking. PT-OP-F Manual Assessment Start: 04/29/18 17:51 Freq: Status: Active Protocol: Document 05/08/18 16:00 [facility] (Rec: 05/10/18 16:34 [facility] [email or web address]) Manual Assessments Soft Tissue Assessment Soft Tissue Mobility Assessment moderate tension in gluteals and piriformis on the R PT-OP-G Mobility & Gait Start: 04/29/18 17:51 Freq: Status: Active Protocol: Document 04/29/18 16:45 [facility] (Rec: 04/29/18 18:14 [facility] [email or web address]) OP Gait Assessment Comments Gait Comments slight decrease of R knee extension during gait. PT-OP-K Range of Motion Start: 02/11/18 09:30 Freq: Status: Active Protocol: Document 05/29/18 16:00 [facility] (Rec: 05/30/18 13:14 [facility] [email or web address]) Knee Goniometric Range of Motion Knee Measured in Degrees Right Extension Active (degrees) 2 Knee ROM Limitations Comments lacking 2 deg. of flexion in R knee initially, then to 0 deg . after manual therapy. PT-OP-M Strength Start: 04/29/18 17:51 Freq: Status: Active Protocol: Document 04/29/18 16:45 [facility] (Rec: 04/29/18 18:14 [facility] [email or web address]) Hip Strength Hip Manual Muscle Testing Left Flexion (L2) 5 Normal Extension (S1) 4+ Good+ External Rotation 5 Normal Internal Rotation 5 Normal Right Flexion (L2) 4+ Good+ Extension (S1) 4+ Good+ External Rotation 4+ Good+ Internal Rotation 5 Normal Knee Strength Knee Manual Muscle Testing Left Flexion (S2) 5 Normal Extension (L3) 5 Normal Right Flexion (S2) 5 Normal Extension (L3) 4 Good Ankle/Foot Strength Ankle and Foot Manual Muscle Testing Right Dorsiflexion (L4) 5 Normal Left Dorsiflexion (L4) 5 Normal PT-OP-Q Treatments Start: 02/11/18 09:30 Freq: Status: Active Protocol: Document 06/05/18 10:35 [facility] (Rec: 06/07/18 17:51 [facility] [email or web address]) Gym Equipment Shuttle Recovery Unilateral Squats Details netural, IR, and ER foot positions Resistance 100 lbs (neutral), 87 lbs (IR and ER) Shuttle Recovery Platform Stable Bilateral Squats Resistance 137 lbs Shuttle Recovery Platform Stable Sport Cord 1 Exercise Details lunges with cord resistance Cord/Resistance black Therapeutic Exercises Standing Exercises 15 Standing Exercise Name gastroc/soleus stretch Side bilateral Equipment Used JAZMÍN 14 Standing Exercise Name split squat jumps Side bilateral Reps/Minutes 10 each Manual Therapy Treatment Soft Tissue Mobilization 5 Body Location R HS & calf Mobilization Type Rolling Sustained Pressure Comments FM with knee ext Joint Mobilizations 2 Joint Tibiofemoral Direction AP onto femur & tibia FM APs Grade IV 1 Joint Patellofemoral (R) Direction medial, superior, inferior Body Position Supine PT-OP-R Modalities Start: 02/11/18 09:30 Freq: Status: Active Protocol: Document 06/05/18 10:35 [facility] (Rec: 06/07/18 17:51 [facility] [email or web address]) Hot Pack/Cold Pack Treatment Hot Pack Location ant & posterior lower leg Patient Position Hooklying Treatment Duration (minutes) 10 Comments @ same time as cold pack to R knee Cold Pack Location ant & post knee Patient Position Hooklying Treatment Duration (minutes) 10 PT-OP-T Assessment and Plan Start: 02/11/18 09:30 Freq: Status: Active Protocol: Document 06/05/18 10:35 [facility] (Rec: 06/07/18 17:51 [facility] [email or web address]) Physical Therapy Assessment Assessment Summary Assessment Pt had a good response to manual therapy and hot pack to the R lower leg. Her increased tension may be due to increasing activity of the RLE, including walking up/down hills in flip-flops. Pt able to increase SL leg press tolerance, and split squats are still limited on the R compared to the L given her impaired RLE strength and power. Physical Therapy Plan Frequency and Duration Frequency of Treatment 2x/Week Duration of Treatment 8 weeks Plan of Care Start Date 04/29/18 Plan of Care End Date 06/24/18 Next Visit Focus/Plan Next Note Type Treatment Note Next Visit Plan R knee ROM, strength, power s/ p R ACL reconstruction.
--- NOTE | 2018-06-10 16:15 | PT.OTN ---
Current Diagnoses Stiffness of right knee, not elsewhere classified (06/10/18) Muscle weakness (generalized) (06/10/18) Other abnormalities of gait and mobility (06/10/18) Sprain of anterior cruciate ligament of right knee, subsequent encounter (06/10/18) Physical Therapy Treatment Note PT-OP-A Visit Information Start: 02/11/18 09:30 Freq: Status: Active Protocol: Document 06/10/18 16:15 [facility] (Rec: 06/10/18 17:30 [facility] [email or web address]) Out-Patient Physical Therapy Visit Information Visit Information Visit Type Treatment Note Visit Start Time 15:15 Visit Stop Time 16:15 Total Visit Minutes 60 Visit Number 35 Number of COORDINATE MEASURING EQUIPMENT OPERATOR Visits 0 Evaluation Information Evaluation Date 01/01/18 PT-OP-B Current Condition Start: 04/29/18 17:51 Freq: Status: Active Protocol: Document 04/29/18 16:45 RCC (Rec: 04/29/18 18:14 [facility] [email or web address]) Current Condition History of Current Condition History of Current Condition Pt is a 22 y/o female presenting to physical therapy s/p R ACL reconstruction ( patellar tendon autograft of ipsilateral side 12/18/2017). Treatment Goals Patient/Caregiver Goals Return to recreational activities (running, Crossfit) PT-OP-C Subjective Start: 02/11/18 09:30 Freq: Status: Active Protocol: Document 06/10/18 16:15 [facility] (Rec: 06/10/18 17:30 [facility] [email or web address]) OP-PT Subjective Patient Comments Patient Comments Pt states that her R buttock and low back are sore. She has increased tension in R knee when attempting deep lunges. PT-OP-F Manual Assessment Start: 04/29/18 17:51 Freq: Status: Active Protocol: Document 05/08/18 16:00 [facility] (Rec: 05/10/18 16:34 [facility] [email or web address]) Manual Assessments Soft Tissue Assessment Soft Tissue Mobility Assessment moderate tension in gluteals and piriformis on the R PT-OP-G Mobility & Gait Start: 04/29/18 17:51 Freq: Status: Active Protocol: Document 04/29/18 16:45 [facility] (Rec: 04/29/18 18:14 [facility] [email or web address]) OP Gait Assessment Comments Gait Comments slight decrease of R knee extension during gait. PT-OP-K Range of Motion Start: 02/11/18 09:30 Freq: Status: Active Protocol: Document 06/10/18 16:15 [facility] (Rec: 06/10/18 17:30 [facility] [email or web address]) Knee Goniometric Range of Motion Knee Measured in Degrees Right Extension Active (degrees) 2 Extension Passive (degrees) 0 PT-OP-M Strength Start: 04/29/18 17:51 Freq: Status: Active Protocol: Document 04/29/18 16:45 [facility] (Rec: 04/29/18 18:14 [facility] [email or web address]) Hip Strength Hip Manual Muscle Testing Left Flexion (L2) 5 Normal Extension (S1) 4+ Good+ External Rotation 5 Normal Internal Rotation 5 Normal Right Flexion (L2) 4+ Good+ Extension (S1) 4+ Good+ External Rotation 4+ Good+ Internal Rotation 5 Normal Knee Strength Knee Manual Muscle Testing Left Flexion (S2) 5 Normal Extension (L3) 5 Normal Right Flexion (S2) 5 Normal Extension (L3) 4 Good Ankle/Foot Strength Ankle and Foot Manual Muscle Testing Right Dorsiflexion (L4) 5 Normal Left Dorsiflexion (L4) 5 Normal PT-OP-Q Treatments Start: 02/11/18 09:30 Freq: Status: Active Protocol: Document 06/10/18 16:15 RCC (Rec: 06/10/18 17:30 RCC [email or web address]) Gym Equipment Shuttle Recovery Unilateral Squats Details netural, IR, and ER foot positions Resistance 100 lbs (neutral), 87 lbs (IR and ER) Shuttle Recovery Platform Stable Bilateral Squats Resistance 137 lbs Shuttle Recovery Platform Stable Sport Cord 3 Exercise Details split squat with lateral resistance from SC Cord/Resistance black Reps/Duration 10 each direction 1 Exercise Details lunges with cord resistance Cord/Resistance black Comments forward (onto BOSU) Therapeutic Exercises Standing Exercises 15 Standing Exercise Name gastroc/soleus stretch Side bilateral Equipment Used JAZMÍN 8 Standing Exercise Name lateral walks Side bilateral Equipment Used blue band Comments walks and side-lunge squats ( to fatigue) Manual Therapy Treatment Soft Tissue Mobilization 5 Body Location R HS & calf Mobilization Type Rolling Sustained Pressure Comments FM with knee ext 2 Body Location ant knee and tibialis anterior Mobilization Type Myofascial Release Intensity/Depth Moderate Body Position Supine Joint Mobilizations 2 Joint Tibiofemoral Direction AP onto femur & tibia FM APs Grade IV PT-OP-R Modalities Start: 02/11/18 09:30 Freq: Status: Active Protocol: Document 06/10/18 16:15 RCC (Rec: 06/10/18 17:30 [facility] [email or web address]) Hot Pack/Cold Pack Treatment Hot Pack Location ant & posterior lower leg Patient Position Hooklying Treatment Duration (minutes) 15 Comments @ same time as cold pack to R knee Cold Pack Location R anterior knee Patient Position Hooklying Treatment Duration (minutes) 15 PT-OP-T Assessment and Plan Start: 02/11/18 09:30 Freq: Status: Active Protocol: Document 06/10/18 16:15 [facility] (Rec: 06/10/18 17:30 [facility] [email or web address]) Physical Therapy Assessment Assessment Summary Assessment Pt still progressing slowly with knee ROM into extension. Limited ability for full lunge with R knee posterior likely due to shortening of rectus femoris muscle on the R, contributing to her anterior hip tension as well and affecting her lumbar posture in standing and with exercise. Physical Therapy Plan Frequency and Duration Frequency of Treatment 2x/Week Duration of Treatment 8 weeks Plan of Care Start Date 04/29/18 Plan of Care End Date 06/24/18 Next Visit Focus/Plan Next Note Type Treatment Note Next Visit Plan R knee ROM, dynamic strength, core stability.
--- NOTE | 2018-06-17 16:10 | PT.OTN ---
Current Diagnoses Stiffness of right knee, not elsewhere classified (06/17/18) Muscle weakness (generalized) (06/17/18) Other abnormalities of gait and mobility (06/17/18) Sprain of anterior cruciate ligament of right knee, subsequent encounter (06/17/18) Physical Therapy Treatment Note PT-OP-A Visit Information Start: 02/11/18 09:30 Freq: Status: Active Protocol: Document 06/17/18 16:10 RCC (Rec: 06/17/18 16:46 [facility] [email or web address]) Out-Patient Physical Therapy Visit Information Visit Information Visit Type Treatment Note Visit Start Time 15:30 Visit Stop Time 16:10 Total Visit Minutes 40 Visit Number 36 Number of HUMANITIES PROFESSOR Visits 0 Evaluation Information Evaluation Date 01/01/18 PT-OP-B Current Condition Start: 04/29/18 17:51 Freq: Status: Active Protocol: Document 04/29/18 16:45 RCC (Rec: 04/29/18 18:14 RCC [email or web address]) Current Condition History of Current Condition History of Current Condition Pt is a 22 y/o female presenting to physical therapy s/p R ACL reconstruction ( patellar tendon autograft of ipsilateral side 12/18/2017). Treatment Goals Patient/Caregiver Goals Return to recreational activities (running, Crossfit) PT-OP-C Subjective Start: 02/11/18 09:30 Freq: Status: Active Protocol: Document 06/17/18 16:10 RCC (Rec: 06/17/18 16:46 [facility] [email or web address]) OP-PT Subjective Patient Comments Patient Comments Pt states she did a lot of walking while in [place] with general LE fatigue and soreness. PT-OP-F Manual Assessment Start: 04/29/18 17:51 Freq: Status: Active Protocol: Document 05/08/18 16:00 RCC (Rec: 05/10/18 16:34 RCC [email or web address]) Manual Assessments Soft Tissue Assessment Soft Tissue Mobility Assessment moderate tension in gluteals and piriformis on the R PT-OP-G Mobility & Gait Start: 04/29/18 17:51 Freq: Status: Active Protocol: Document 04/29/18 16:45 RCC (Rec: 04/29/18 18:14 RCC [email or web address]) OP Gait Assessment Comments Gait Comments slight decrease of R knee extension during gait. PT-OP-K Range of Motion Start: 02/11/18 09:30 Freq: Status: Active Protocol: Document 06/10/18 16:15 RCC (Rec: 06/10/18 17:30 RCC [email or web address]) Knee Goniometric Range of Motion Knee Measured in Degrees Right Extension Active (degrees) 2 Extension Passive (degrees) 0 PT-OP-M Strength Start: 04/29/18 17:51 Freq: Status: Active Protocol: Document 04/29/18 16:45 RCC (Rec: 04/29/18 18:14 RCC [email or web address]) Hip Strength Hip Manual Muscle Testing Left Flexion (L2) 5 Normal Extension (S1) 4+ Good+ External Rotation 5 Normal Internal Rotation 5 Normal Right Flexion (L2) 4+ Good+ Extension (S1) 4+ Good+ External Rotation 4+ Good+ Internal Rotation 5 Normal Knee Strength Knee Manual Muscle Testing Left Flexion (S2) 5 Normal Extension (L3) 5 Normal Right Flexion (S2) 5 Normal Extension (L3) 4 Good Ankle/Foot Strength Ankle and Foot Manual Muscle Testing Right Dorsiflexion (L4) 5 Normal Left Dorsiflexion (L4) 5 Normal PT-OP-Q Treatments Start: 02/11/18 09:30 Freq: Status: Active Protocol: Document 06/17/18 16:10 RCC (Rec: 06/17/18 16:46 RCC [email or web address]) Gym Equipment Shuttle Recovery Unilateral Squats Details netural, IR, and ER foot positions Resistance 100 lbs Shuttle Recovery Platform Stable Bilateral Squats Resistance 137 lbs Shuttle Recovery Platform Stable Sport Cord 1 Exercise Details lunges with cord resistance Cord/Resistance black Comments forward facing each way Therapeutic Exercises Supine Exercises 1 Supine Exercise Name Psoas and Rectus Femoris stretch Side right Comments RLE off table Standing Exercises 15 Standing Exercise Name gastroc/soleus stretch Side bilateral Equipment Used JAZMÍN 14 Standing Exercise Name split squat jumps Side bilateral Reps/Minutes 10 each 9 Standing Exercise Name Single leg hops R Manual Therapy Treatment Soft Tissue Mobilization 5 Body Location R HS & calf Mobilization Type Rolling Sustained Pressure Comments FM with knee ext 4 Body Location R quads Mobilization Type Rolling Intensity/Depth Deep Body Position Supine Comments with rolling stick 3 Body Location R knee scar tissue Mobilization Type Rolling Intensity/Depth Moderate Body Position Supine 1 Body Location Psoas & iliacus (R) Mobilization Type Sustained Pressure Intensity/Depth Deep Body Position Supine Comments distal PT-OP-T Assessment and Plan Start: 02/11/18 09:30 Freq: Status: Active Protocol: Document 06/17/18 16:10 RCC (Rec: 06/17/18 16:46 RCC [email or web address]) Physical Therapy Assessment Assessment Summary Assessment Pt with less knee flexion prior to and after jump ( landing) on the R compared to the L and significant difference noted in overall SL power. Physical Therapy Plan Frequency and Duration Frequency of Treatment 2x/Week Duration of Treatment 8 weeks Plan of Care Start Date 04/29/18 Plan of Care End Date 06/24/18 Next Visit Focus/Plan Next Note Type Treatment Note Next Visit Plan R knee ROM, strength, dynamic activities.
--- NOTE | 2018-06-24 16:00 | PT.OPPN ---
Current Diagnoses Stiffness of right knee, not elsewhere classified (06/24/18) Muscle weakness (generalized) (06/24/18) Other abnormalities of gait and mobility (06/24/18) Sprain of anterior cruciate ligament of right knee, subsequent encounter (06/24/18) Physical Therapy Progress Note PT-OP-A Visit Information Start: 02/11/18 09:30 Freq: Status: Active Protocol: Document 06/24/18 16:00 RCC (Rec: 06/25/18 10:32 RCC [email or web address]) Out-Patient Physical Therapy Visit Information Visit Information Visit Type Treatment Note Visit Start Time 15:15 Visit Stop Time 16:00 Total Visit Minutes 45 Visit Number 37 Number of TABLE MAKER Visits 0 Evaluation Information Evaluation Date 01/01/18 PT-OP-B Current Condition Start: 04/29/18 17:51 Freq: Status: Active Protocol: Document 04/29/18 16:45 RCC (Rec: 04/29/18 18:14 RCC [email or web address]) Current Condition History of Current Condition History of Current Condition Pt is a 22 y/o female presenting to physical therapy s/p R ACL reconstruction ( patellar tendon autograft of ipsilateral side 12/18/2017). Treatment Goals Patient/Caregiver Goals Return to recreational activities (running, Crossfit) PT-OP-C Subjective Start: 02/11/18 09:30 Freq: Status: Active Protocol: Document 06/24/18 16:00 RCC (Rec: 06/25/18 10:32 RCC [email or web address]) OP-PT Subjective Patient Comments Patient Comments Pt states she saw her surgeon on Friday, and was encouraged when he tested her strength. She did some work around home, lifting and stacking wood which caused increased soreness in posterior thigh. PT-OP-F Manual Assessment Start: 04/29/18 17:51 Freq: Status: Active Protocol: Document 05/08/18 16:00 RCC (Rec: 05/10/18 16:34 RCC [email or web address]) Manual Assessments Soft Tissue Assessment Soft Tissue Mobility Assessment moderate tension in gluteals and piriformis on the R PT-OP-G Mobility & Gait Start: 04/29/18 17:51 Freq: Status: Active Protocol: Document 04/29/18 16:45 RCC (Rec: 04/29/18 18:14 RCC [email or web address]) OP Gait Assessment Comments Gait Comments slight decrease of R knee extension during gait. PT-OP-K Range of Motion Start: 02/11/18 09:30 Freq: Status: Active Protocol: Document 06/24/18 16:00 RCC (Rec: 06/25/18 10:32 [facility] [email or web address]) Knee Goniometric Range of Motion Knee Measured in Degrees Right Flexion Active (degrees) 138 Extension Active (degrees) 2 Extension Passive (degrees) 0 PT-OP-M Strength Start: 04/29/18 17:51 Freq: Status: Active Protocol: Document 06/24/18 16:00 RCC (Rec: 06/25/18 10:32 [facility] [email or web address]) Hip Strength Hip Manual Muscle Testing Right Flexion (L2) 4+ Good+ Extension (S1) 4+ Good+ External Rotation 5 Normal Internal Rotation 5 Normal Knee Strength Knee Manual Muscle Testing Right Flexion (S2) 5 Normal Extension (L3) 4+ Good+ Ankle/Foot Strength Ankle and Foot Manual Muscle Testing Right Dorsiflexion (L4) 5 Normal PT-OP-T Assessment and Plan Start: 02/11/18 09:30 Freq: Status: Active Protocol: Document 06/24/18 16:00 [facility] (Rec: 06/25/18 10:32 [facility] [email or web address]) Physical Therapy Assessment Goals Three Impairment RLE weakness Ambulance Operations Supervisor Goal (LTG) 5/5 manual muscle testing of the hip, knee and ankle RLE prior to d/c. -good progress 06/24/2018 LTG Duration 6 weeks Two Impairment R knee ROM Ambulance Operations Supervisor Goal (LTG) 0-135 AROM R knee *2-138 AROM R knee on 2017 LTG Duration 6 weeks One Impairment Recreational activities Ambulance Operations Supervisor Goal (LTG) Pt will return to running, hiking, gym workouts without pain or restrictions prior to d/c. - some progress 06/24/2018 LTG Duration 6 weeks Progress Towards Goals Progress Towards Goals Progressing Toward Goals Assessment Summary Assessment Pt s/p R knee ACL reconstruction, patellar tendon autograft 12/18/2017. Pt is making progress with strength, still with some limitation with knee extension , and hip flexion and extension. ROM continues to be lacking slightly in extension , but hopeful pt can continue to be consistent with ROM and stretching to achieve full extension without passive or manual assistance. Pt is tolerating light plyometrics and progression of strengthening without pain, but is still below her prior level of function and is still unable to perform her prior recreational activities, which she would greatly benefit from a skilled progression of exercise and activities to achieve this through physical therapy intervention. Physical Therapy Plan Frequency and Duration Frequency of Treatment 2x/Week Duration of Treatment 6 weeks Plan of Care Start Date 06/24/18 Plan of Care End Date 08/05/18 Therapeutic Interventions Therapeutic Interventions Aquatic Therapy Balance Training Gait Training Home Exercise Program Joint Mobilizations Manual Therapy Neuromuscular Re-education Patient/Caregiver Education Self-Care/Home Management Soft Tissue Mobilization Taping Therapeutic Activities Therapeutic Exercises Modalities Cold Pack/Ice Massage Electric Stimulation Hot Packs Ultrasound Next Visit Focus/Plan Next Note Type Treatment Note Next Visit Plan progress R knee extension ROM and strength, progress core stabilization and general body mechanics.
--- NOTE | 2018-06-24 16:00 | PT.OPPOC ---
Current Diagnoses Stiffness of right knee, not elsewhere classified (07/01/18) Muscle weakness (generalized) (07/01/18) Other abnormalities of gait and mobility (07/01/18) Sprain of anterior cruciate ligament of right knee, subsequent encounter (07/01/18) Provider Visit Care Team Role Provider Type Yonatan Queen MD Family Provider Non-Staff Primary Care Provider Specialty: Medical Address: [address] [place], [address] Email: Duane Hodges MD Attending Provider Non-Staff Specialty: Medical Address: [id number] [place] [address] [address], [place], [address] Email: Plan Of Care PT-OP-T Assessment and Plan Start: 02/11/18 09:30 Freq: Status: Active Protocol: Document 07/02/18 12:42 RCC (Rec: 07/02/18 12:51 RCC [email or web address]) Physical Therapy Assessment Goals Three Impairment RLE weakness Prison Goal (LTG) 5/5 manual muscle testing of the hip, knee and ankle RLE prior to d/c. -good progress 06/24/2018 LTG Duration 6 weeks Two Impairment R knee ROM Psych Arnp Goal (LTG) 0-135 AROM R knee *2-138 AROM R knee on 2017 LTG Duration 6 weeks One Impairment Recreational activities Psych Arnp Goal (LTG) Pt will return to running, hiking, gym workouts without pain or restrictions prior to d/c. - some progress 06/24/2018 LTG Duration 6 weeks Progress Towards Goals Progress Towards Goals Progressing Toward Goals Assessment Summary Assessment Pt s/p R knee ACL reconstruction, patellar tendon autograft 12/18/2017. Pt is making progress with strength, still with some limitation with knee extension , and hip flexion and extension. ROM continues to be lacking slightly in extension , but hopeful pt can continue to be consistent with ROM and stretching to achieve full extension without passive or manual assistance. Pt is tolerating light plyometrics and progression of strengthening without pain, but is still below her prior level of function and is still unable to perform her prior recreational activities, which she would greatly benefit from a skilled progression of exercise and activities to achieve this through physical therapy intervention. Physical Therapy Plan Frequency and Duration Frequency of Treatment 2x/Week Duration of Treatment 6 weeks Plan of Care Start Date 06/24/18 Plan of Care End Date 08/05/18 Therapeutic Interventions Therapeutic Interventions Aquatic Therapy Balance Training Gait Training Home Exercise Program Joint Mobilizations Manual Therapy Neuromuscular Re-education Patient/Caregiver Education Self-Care/Home Management Soft Tissue Mobilization Taping Therapeutic Activities Therapeutic Exercises Modalities Cold Pack/Ice Massage Electric Stimulation Hot Packs Ultrasound Next Visit Focus/Plan Next Note Type Treatment Note Next Visit Plan progress R knee extension ROM and strength, progress core stabilization and general body mechanics. Plan of Care Dates Plan of Care Start Date 06/24/18 Plan of Care End Date 08/05/18 Please Sign and Return: I have reviewed this Plan of Care and certify that the skilled therapy services above are required to meet the patient?s needs. Physician Signature Date Printed Name and Credentials Clinical Instructor Signature Printed Name and Credentials
--- NOTE | 2018-06-26 16:00 | PT.OTN ---
Current Diagnoses Stiffness of right knee, not elsewhere classified (06/26/18) Muscle weakness (generalized) (06/26/18) Other abnormalities of gait and mobility (06/26/18) Sprain of anterior cruciate ligament of right knee, subsequent encounter (06/26/18) Physical Therapy Treatment Note PT-OP-A Visit Information Start: 02/11/18 09:30 Freq: Status: Active Protocol: Document 06/26/18 16:00 RCC (Rec: 06/27/18 16:10 RCC [email or web address]) Out-Patient Physical Therapy Visit Information Visit Information Visit Type Treatment Note Visit Start Time 15:16 Visit Stop Time 16:00 Total Visit Minutes 44 Visit Number 38 Number of POLICE SERVICE TECHNICIAN Visits 0 Evaluation Information Evaluation Date 01/01/18 PT-OP-B Current Condition Start: 04/29/18 17:51 Freq: Status: Active Protocol: Document 04/29/18 16:45 RCC (Rec: 04/29/18 18:14 [facility] [email or web address]) Current Condition History of Current Condition History of Current Condition Pt is a 22 y/o female presenting to physical therapy s/p R ACL reconstruction ( patellar tendon autograft of ipsilateral side 12/18/2017). Treatment Goals Patient/Caregiver Goals Return to recreational activities (running, Crossfit) PT-OP-C Subjective Start: 02/11/18 09:30 Freq: Status: Active Protocol: Document 06/26/18 16:00 RCC (Rec: 06/27/18 16:10 [facility] [email or web address]) OP-PT Subjective Patient Comments Patient Comments Pt is working on her HEP and has been doing a variety of strength training at home. PT-OP-F Manual Assessment Start: 04/29/18 17:51 Freq: Status: Active Protocol: Document 05/08/18 16:00 RCC (Rec: 05/10/18 16:34 [facility] [email or web address]) Manual Assessments Soft Tissue Assessment Soft Tissue Mobility Assessment moderate tension in gluteals and piriformis on the R PT-OP-G Mobility & Gait Start: 04/29/18 17:51 Freq: Status: Active Protocol: Document 04/29/18 16:45 RCC (Rec: 04/29/18 18:14 [facility] [email or web address]) OP Gait Assessment Comments Gait Comments slight decrease of R knee extension during gait. PT-OP-K Range of Motion Start: 02/11/18 09:30 Freq: Status: Active Protocol: Document 06/26/18 16:00 RCC (Rec: 06/27/18 16:10 [facility] [email or web address]) Knee Goniometric Range of Motion Knee Measured in Degrees Right Extension Active (degrees) 1 Extension Passive (degrees) 0 PT-OP-M Strength Start: 04/29/18 17:51 Freq: Status: Active Protocol: Document 06/24/18 16:00 RCC (Rec: 06/25/18 10:32 [facility] [email or web address]) Hip Strength Hip Manual Muscle Testing Right Flexion (L2) 4+ Good+ Extension (S1) 4+ Good+ External Rotation 5 Normal Internal Rotation 5 Normal Knee Strength Knee Manual Muscle Testing Right Flexion (S2) 5 Normal Extension (L3) 4+ Good+ Ankle/Foot Strength Ankle and Foot Manual Muscle Testing Right Dorsiflexion (L4) 5 Normal PT-OP-Q Treatments Start: 02/11/18 09:30 Freq: Status: Active Protocol: Document 06/26/18 16:00 RCC (Rec: 06/27/18 16:10 RCC [email or web address]) Gym Equipment Shuttle Recovery Unilateral Squats Details netural, IR, and ER foot positions Resistance 100 lbs Shuttle Recovery Platform Stable Reps/Time to fatigue Bilateral Squats Resistance 150 lbs Shuttle Recovery Platform Stable Reps/Time to fatigue Sport Cord 3 Exercise Details split squat with lateral resistance from SC Cord/Resistance black Reps/Duration 10 each direction 1 Exercise Details lunges with cord resistance Cord/Resistance black Comments forward facing each way Manual Therapy Treatment Soft Tissue Mobilization 5 Body Location R HS & calf Mobilization Type Rolling Sustained Pressure Comments FM with knee ext Joint Mobilizations 2 Joint Tibiofemoral Direction AP onto femur & tibia FM APs, tibial ER Grade IV 1 Joint Patellofemoral (R) Direction medial, superior, inferior Body Position Supine PT-OP-R Modalities Start: 02/11/18 09:30 Freq: Status: Active Protocol: Document 06/10/18 16:15 RCC (Rec: 06/10/18 17:30 RCC [email or web address]) Hot Pack/Cold Pack Treatment Hot Pack Location ant & posterior lower leg Patient Position Hooklying Treatment Duration (minutes) 15 Comments @ same time as cold pack to R knee Cold Pack Location R anterior knee Patient Position Hooklying Treatment Duration (minutes) 15 PT-OP-T Assessment and Plan Start: 02/11/18 09:30 Freq: Status: Active Protocol: Document 06/26/18 16:00 RCC (Rec: 06/27/18 16:10 [facility] [email or web address]) Physical Therapy Assessment Assessment Summary Assessment Pt with improved extension from lacking 1 degree to neutral with adding ER of the tibia on the femur with manual therapy. She is getting deeper with her knee flexion in lunges, but continues to have tension in rectus femoris and hip flexors. Physical Therapy Plan Frequency and Duration Frequency of Treatment 2x/Week Duration of Treatment 6 weeks Plan of Care Start Date 06/24/18 Plan of Care End Date 08/05/18 Next Visit Focus/Plan Next Note Type Treatment Note Next Visit Plan continue with ER of tibia on femur, progress her stretching of rectus femoris and LE strength and stability.
--- NOTE | 2018-07-01 15:45 | PT.OTN ---
Current Diagnoses Stiffness of right knee, not elsewhere classified (07/01/18) Muscle weakness (generalized) (07/01/18) Other abnormalities of gait and mobility (07/01/18) Sprain of anterior cruciate ligament of right knee, subsequent encounter (07/01/18) Physical Therapy Treatment Note PT-OP-A Visit Information Start: 02/11/18 09:30 Freq: Status: Active Protocol: Document 07/01/18 15:45 [facility] (Rec: 07/01/18 15:57 [facility] [email or web address]) Out-Patient Physical Therapy Visit Information Visit Information Visit Type Treatment Note Visit Start Time 15:15 Visit Stop Time 15:45 Total Visit Minutes 30 Visit Number 39 Number of SUPERVISOR [employer] ACCOUNTS Visits 0 Evaluation Information Evaluation Date 01/01/18 PT-OP-B Current Condition Start: 04/29/18 17:51 Freq: Status: Active Protocol: Document 04/29/18 16:45 RCC (Rec: 04/29/18 18:14 RCC [email or web address]) Current Condition History of Current Condition History of Current Condition Pt is a 22 y/o female presenting to physical therapy s/p R ACL reconstruction ( patellar tendon autograft of ipsilateral side 12/18/2017). Treatment Goals Patient/Caregiver Goals Return to recreational activities (running, Crossfit) PT-OP-C Subjective Start: 02/11/18 09:30 Freq: Status: Active Protocol: Document 07/01/18 15:45 RCC (Rec: 07/01/18 15:57 RCC [email or web address]) OP-PT Subjective Patient Comments Patient Comments Pt states her knee has felt less tight this past week. PT-OP-F Manual Assessment Start: 04/29/18 17:51 Freq: Status: Active Protocol: Document 07/01/18 15:45 RCC (Rec: 07/01/18 15:57 [facility] [email or web address]) Manual Assessments Soft Tissue Assessment Soft Tissue Mobility Assessment increased tension in R HS PT-OP-G Mobility & Gait Start: 04/29/18 17:51 Freq: Status: Active Protocol: Document 04/29/18 16:45 RCC (Rec: 04/29/18 18:14 RCC [email or web address]) OP Gait Assessment Comments Gait Comments slight decrease of R knee extension during gait. PT-OP-K Range of Motion Start: 02/11/18 09:30 Freq: Status: Active Protocol: Document 06/26/18 16:00 RCC (Rec: 06/27/18 16:10 RCC [email or web address]) Knee Goniometric Range of Motion Knee Measured in Degrees Right Extension Active (degrees) 1 Extension Passive (degrees) 0 PT-OP-M Strength Start: 04/29/18 17:51 Freq: Status: Active Protocol: Document 06/24/18 16:00 RCC (Rec: 06/25/18 10:32 [facility] [email or web address]) Hip Strength Hip Manual Muscle Testing Right Flexion (L2) 4+ Good+ Extension (S1) 4+ Good+ External Rotation 5 Normal Internal Rotation 5 Normal Knee Strength Knee Manual Muscle Testing Right Flexion (S2) 5 Normal Extension (L3) 4+ Good+ Ankle/Foot Strength Ankle and Foot Manual Muscle Testing Right Dorsiflexion (L4) 5 Normal PT-OP-Q Treatments Start: 02/11/18 09:30 Freq: Status: Active Protocol: Document 07/01/18 15:45 RCC (Rec: 07/01/18 15:57 RCC [email or web address]) Therapeutic Exercises Standing Exercises hamstring stretch Standing Exercise Name hamstring stretch Side bilateral Equipment Used stairs TKE Standing Exercise Name terminal knee extension Side right Resistance L3 Reps/Minutes 25 15 Standing Exercise Name gastroc/soleus stretch Side bilateral Equipment Used JAZMÍN Manual Therapy Treatment Soft Tissue Mobilization 5 Body Location R HS & calf Mobilization Type Rolling Sustained Pressure Comments FM with knee ext Joint Mobilizations 2 Joint Tibiofemoral Direction AP onto femur & tibia FM APs, tibial ER Grade IV 1 Joint Patellofemoral (R) Direction medial, superior, inferior Body Position Supine PT-OP-R Modalities Start: 02/11/18 09:30 Freq: Status: Active Protocol: Document 06/10/18 16:15 RCC (Rec: 06/10/18 17:30 RCC [email or web address]) Hot Pack/Cold Pack Treatment Hot Pack Location ant & posterior lower leg Patient Position Hooklying Treatment Duration (minutes) 15 Comments @ same time as cold pack to R knee Cold Pack Location R anterior knee Patient Position Hooklying Treatment Duration (minutes) 15 PT-OP-T Assessment and Plan Start: 02/11/18 09:30 Freq: Status: Active Protocol: Document 07/01/18 15:45 RCC (Rec: 07/01/18 15:57 [facility] [email or web address]) Physical Therapy Assessment Assessment Summary Assessment Pt had to leave early this date due to having another appointment scheduled. Pt appears to be responding well to ER mobilization, but still has HS tension. Physical Therapy Plan Frequency and Duration Frequency of Treatment 2x/Week Duration of Treatment 6 weeks Plan of Care Start Date 06/24/18 Plan of Care End Date 08/05/18 Next Visit Focus/Plan Next Note Type Treatment Note Next Visit Plan R knee ROM, strength s/p ACL reconstruction.
--- NOTE | 2018-07-03 16:00 | PT.OTN ---
Current Diagnoses Stiffness of right knee, not elsewhere classified (07/03/18) Muscle weakness (generalized) (07/03/18) Other abnormalities of gait and mobility (07/03/18) Sprain of anterior cruciate ligament of right knee, subsequent encounter (07/03/18) Physical Therapy Treatment Note PT-OP-A Visit Information Start: 02/11/18 09:30 Freq: Status: Active Protocol: Document 07/03/18 16:00 RCC (Rec: 07/04/18 14:32 RCC [email or web address]) Out-Patient Physical Therapy Visit Information Visit Information Visit Type Treatment Note Visit Start Time 15:15 Visit Stop Time 16:11 Total Visit Minutes 56 Visit Number 40 Number of ENTERPRISE [employer]OUD ARCHITECT Visits 0 Evaluation Information Evaluation Date 01/01/18 PT-OP-B Current Condition Start: 04/29/18 17:51 Freq: Status: Active Protocol: Document 04/29/18 16:45 RCC (Rec: 04/29/18 18:14 RCC [email or web address]) Current Condition History of Current Condition History of Current Condition Pt is a 22 y/o female presenting to physical therapy s/p R ACL reconstruction ( patellar tendon autograft of ipsilateral side 12/18/2017). Treatment Goals Patient/Caregiver Goals Return to recreational activities (running, Crossfit) PT-OP-C Subjective Start: 02/11/18 09:30 Freq: Status: Active Protocol: Document 07/03/18 16:00 RCC (Rec: 07/04/18 14:32 RCC [email or web address]) OP-PT Subjective Patient Comments Patient Comments Pt states that her knee is tight today, very sore in the posterior knee and thigh. PT-OP-F Manual Assessment Start: 04/29/18 17:51 Freq: Status: Active Protocol: Document 07/03/18 16:00 RCC (Rec: 07/04/18 14:32 [facility] [email or web address]) Manual Assessments Soft Tissue Assessment Soft Tissue Mobility Assessment increased tension R HS, quads, rectus femoris PT-OP-G Mobility & Gait Start: 04/29/18 17:51 Freq: Status: Active Protocol: Document 04/29/18 16:45 RCC (Rec: 04/29/18 18:14 [facility] [email or web address]) OP Gait Assessment Comments Gait Comments slight decrease of R knee extension during gait. PT-OP-K Range of Motion Start: 02/11/18 09:30 Freq: Status: Active Protocol: Document 06/26/18 16:00 RCC (Rec: 06/27/18 16:10 RCC [email or web address]) Knee Goniometric Range of Motion Knee Measured in Degrees Right Extension Active (degrees) 1 Extension Passive (degrees) 0 PT-OP-M Strength Start: 04/29/18 17:51 Freq: Status: Active Protocol: Document 06/24/18 16:00 RCC (Rec: 06/25/18 10:32 [facility] [email or web address]) Hip Strength Hip Manual Muscle Testing Right Flexion (L2) 4+ Good+ Extension (S1) 4+ Good+ External Rotation 5 Normal Internal Rotation 5 Normal Knee Strength Knee Manual Muscle Testing Right Flexion (S2) 5 Normal Extension (L3) 4+ Good+ Ankle/Foot Strength Ankle and Foot Manual Muscle Testing Right Dorsiflexion (L4) 5 Normal PT-OP-Q Treatments Start: 02/11/18 09:30 Freq: Status: Active Protocol: Document 07/03/18 16:00 RCC (Rec: 07/04/18 14:32 [facility] [email or web address]) Manual Therapy Treatment Soft Tissue Mobilization 5 Body Location R HS & calf Mobilization Type Rolling Sustained Pressure Comments FM with knee ext 4 Body Location R quads, rectus femoris Mobilization Type Rolling Intensity/Depth Deep Body Position Supine 3 Body Location R knee scar tissue Mobilization Type Rolling Intensity/Depth Moderate Body Position Supine 2 Body Location R gluteals and piriformis Mobilization Type Strumming Intensity/Depth Deep Body Position Sidelying 1 Body Location Psoas & iliacus (R) Mobilization Type Sustained Pressure Intensity/Depth Deep Body Position Supine Comments distal Joint Mobilizations 2 Joint Tibiofemoral Direction AP onto femur & tibia FM APs, tibial ER Grade IV 1 Joint Patellofemoral (R) Direction medial, superior, inferior Body Position Supine Manual Techniques MET Type to correct R posterior ilial rotation Body Position Hooklying Comments hip flex R, ext L, followed by B hip adduction PT-OP-R Modalities Start: 02/11/18 09:30 Freq: Status: Active Protocol: Document 07/03/18 16:00 RCC (Rec: 07/04/18 14:32 [facility] [email or web address]) Hot Pack/Cold Pack Treatment Cold Pack Location R anterior knee and lumbar spine Patient Position Hooklying Treatment Duration (minutes) 10 Patient Tolerance Good PT-OP-T Assessment and Plan Start: 02/11/18 09:30 Freq: Status: Active Protocol: Document 07/03/18 16:00 RCC (Rec: 07/04/18 14:32 RCC [email or web address]) Physical Therapy Assessment Assessment Summary Assessment Pt with significantly increased tension in R hamstrings and quadriceps, leading to decreased knee extension initially, but able to achieve 0 degrees PROM into R knee extension after extensive manual therapy. Pt also with R posterior ilial rotation, likely due to increased tension in hamstrings on the R causing excessive posterior rotation of the pelvis. Physical Therapy Plan Frequency and Duration Frequency of Treatment 2x/Week Duration of Treatment 6 weeks Plan of Care Start Date 06/24/18 Plan of Care End Date 08/05/18 Next Visit Focus/Plan Next Note Type Treatment Note Next Visit Plan continue to progress R knee strength and ROM (extension), joint mobilizations, dynamic strengthening activities.
--- NOTE | 2018-07-08 15:55 | PT.OTN ---
Current Diagnoses Stiffness of right knee, not elsewhere classified (07/08/18) Muscle weakness (generalized) (07/08/18) Other abnormalities of gait and mobility (07/08/18) Sprain of anterior cruciate ligament of right knee, subsequent encounter (07/08/18) Physical Therapy Treatment Note PT-OP-A Visit Information Start: 02/11/18 09:30 Freq: Status: Active Protocol: Document 07/08/18 15:55 RCC (Rec: 07/08/18 16:01 RCC [email or web address]) Out-Patient Physical Therapy Visit Information Visit Information Visit Type Treatment Note Visit Start Time 15:15 Visit Stop Time 15:55 Total Visit Minutes 40 Visit Number 41 Number of CAMERA SUPERVISOR Visits 0 Evaluation Information Evaluation Date 01/01/18 PT-OP-B Current Condition Start: 04/29/18 17:51 Freq: Status: Active Protocol: Document 04/29/18 16:45 RCC (Rec: 04/29/18 18:14 RCC [email or web address]) Current Condition History of Current Condition History of Current Condition Pt is a 22 y/o female presenting to physical therapy s/p R ACL reconstruction ( patellar tendon autograft of ipsilateral side 12/18/2017). Treatment Goals Patient/Caregiver Goals Return to recreational activities (running, Crossfit) PT-OP-C Subjective Start: 02/11/18 09:30 Freq: Status: Active Protocol: Document 07/08/18 15:55 RCC (Rec: 07/08/18 16:01 RCC [email or web address]) OP-PT Subjective Patient Comments Patient Comments Pt was able to run in intervals yesterday. She felt sore afterward, but overall was pleased. She states she is not back to her prior level. PT-OP-F Manual Assessment Start: 04/29/18 17:51 Freq: Status: Active Protocol: Document 07/08/18 15:55 RCC (Rec: 07/08/18 16:01 RCC [email or web address]) Manual Assessments Soft Tissue Assessment Soft Tissue Mobility Assessment increased tension R HS, IT band PT-OP-G Mobility & Gait Start: 04/29/18 17:51 Freq: Status: Active Protocol: Document 04/29/18 16:45 RCC (Rec: 04/29/18 18:14 RCC [email or web address]) OP Gait Assessment Comments Gait Comments slight decrease of R knee extension during gait. PT-OP-K Range of Motion Start: 02/11/18 09:30 Freq: Status: Active Protocol: Document 06/26/18 16:00 RCC (Rec: 06/27/18 16:10 RCC [email or web address]) Knee Goniometric Range of Motion Knee Measured in Degrees Right Extension Active (degrees) 1 Extension Passive (degrees) 0 PT-OP-M Strength Start: 04/29/18 17:51 Freq: Status: Active Protocol: Document 06/24/18 16:00 RCC (Rec: 06/25/18 10:32 RCC [email or web address]) Hip Strength Hip Manual Muscle Testing Right Flexion (L2) 4+ Good+ Extension (S1) 4+ Good+ External Rotation 5 Normal Internal Rotation 5 Normal Knee Strength Knee Manual Muscle Testing Right Flexion (S2) 5 Normal Extension (L3) 4+ Good+ Ankle/Foot Strength Ankle and Foot Manual Muscle Testing Right Dorsiflexion (L4) 5 Normal PT-OP-Q Treatments Start: 02/11/18 09:30 Freq: Status: Active Protocol: Document 07/08/18 15:55 RCC (Rec: 07/08/18 16:01 RCC [email or web address]) Therapeutic Exercises Supine Exercises piriformis stretch Supine Exercise Name piriformis stretch Side right IT band stretch Supine Exercise Name IT band stretch Side right 1 Supine Exercise Name Psoas and Rectus Femoris stretch Side right Comments RLE off table Manual Therapy Treatment Soft Tissue Mobilization 5 Body Location R HS & calf Mobilization Type Rolling Sustained Pressure Comments FM with knee ext 3 Body Location R knee scar tissue Mobilization Type Rolling Intensity/Depth Moderate Body Position Supine 2 Body Location R IT band Mobilization Type Strumming Intensity/Depth Deep Body Position Supine Joint Mobilizations 2 Joint Tibiofemoral Direction AP onto femur & tibia FM APs, tibial ER Grade IV 1 Joint Patellofemoral (R) Direction superior Body Position Supine PT-OP-R Modalities Start: 02/11/18 09:30 Freq: Status: Active Protocol: Document 07/03/18 16:00 RCC (Rec: 07/04/18 14:32 RCC [email or web address]) Hot Pack/Cold Pack Treatment Cold Pack Location R anterior knee and lumbar spine Patient Position Hooklying Treatment Duration (minutes) 10 Patient Tolerance Good PT-OP-T Assessment and Plan Start: 02/11/18 09:30 Freq: Status: Active Protocol: Document 07/08/18 15:55 RCC (Rec: 07/08/18 16:01 [facility] [email or web address]) Physical Therapy Assessment Assessment Summary Assessment R IT band with increased tension @ the lateral knee, possibly due to running yesterday. Pt continues to have significant tension in her RLE which appears to be contributing to her decreased ROM of the the knee. Extension to neutral after manual therapy today. Physical Therapy Plan Frequency and Duration Frequency of Treatment 2x/Week Duration of Treatment 6 weeks Plan of Care Start Date 06/24/18 Plan of Care End Date 08/05/18 Next Visit Focus/Plan Next Note Type Treatment Note Next Visit Plan cont. prog. stabilization of R knee, ROM.
--- NOTE | 2018-07-10 15:57 | PT.OTN ---
Current Diagnoses Stiffness of right knee, not elsewhere classified (07/10/18) Muscle weakness (generalized) (07/10/18) Other abnormalities of gait and mobility (07/10/18) Sprain of anterior cruciate ligament of right knee, subsequent encounter (07/10/18) Physical Therapy Treatment Note PT-OP-A Visit Information Start: 02/11/18 09:30 Freq: Status: Active Protocol: Document 07/10/18 15:57 RCC (Rec: 07/11/18 11:42 RCC [email or web address]) Out-Patient Physical Therapy Visit Information Visit Information Visit Type Treatment Note Visit Start Time 15:15 Visit Stop Time 15:57 Total Visit Minutes 42 Visit Number 42 Number of BATCH AND FURNACE OPERATOR Visits 0 Evaluation Information Evaluation Date 01/01/18 PT-OP-B Current Condition Start: 04/29/18 17:51 Freq: Status: Active Protocol: Document 04/29/18 16:45 RCC (Rec: 04/29/18 18:14 RCC [email or web address]) Current Condition History of Current Condition History of Current Condition Pt is a 22 y/o female presenting to physical therapy s/p R ACL reconstruction ( patellar tendon autograft of ipsilateral side 12/18/2017). Treatment Goals Patient/Caregiver Goals Return to recreational activities (running, Crossfit) PT-OP-C Subjective Start: 02/11/18 09:30 Freq: Status: Active Protocol: Document 07/10/18 15:57 RCC (Rec: 07/11/18 11:42 RCC [email or web address]) OP-PT Subjective Patient Comments Patient Comments Pt states that her knee is doing well today, less stiff than Friday. PT-OP-F Manual Assessment Start: 04/29/18 17:51 Freq: Status: Active Protocol: Document 07/08/18 15:55 RCC (Rec: 07/08/18 16:01 RCC [email or web address]) Manual Assessments Soft Tissue Assessment Soft Tissue Mobility Assessment increased tension R HS, IT band PT-OP-G Mobility & Gait Start: 04/29/18 17:51 Freq: Status: Active Protocol: Document 04/29/18 16:45 RCC (Rec: 04/29/18 18:14 RCC [email or web address]) OP Gait Assessment Comments Gait Comments slight decrease of R knee extension during gait. PT-OP-K Range of Motion Start: 02/11/18 09:30 Freq: Status: Active Protocol: Document 07/10/18 15:57 RCC (Rec: 07/11/18 11:42 RCC [email or web address]) Knee Goniometric Range of Motion Knee Measured in Degrees Right Extension Active (degrees) 1 Extension Passive (degrees) 0 PT-OP-M Strength Start: 04/29/18 17:51 Freq: Status: Active Protocol: Document 06/24/18 16:00 RCC (Rec: 06/25/18 10:32 RCC [email or web address]) Hip Strength Hip Manual Muscle Testing Right Flexion (L2) 4+ Good+ Extension (S1) 4+ Good+ External Rotation 5 Normal Internal Rotation 5 Normal Knee Strength Knee Manual Muscle Testing Right Flexion (S2) 5 Normal Extension (L3) 4+ Good+ Ankle/Foot Strength Ankle and Foot Manual Muscle Testing Right Dorsiflexion (L4) 5 Normal PT-OP-Q Treatments Start: 02/11/18 09:30 Freq: Status: Active Protocol: Document 07/10/18 15:57 RCC (Rec: 07/11/18 11:42 [facility] [address] [email or web address]) Cardio Equipment Rowing Machine Duration (Minutes) 5 Resistance 2 Gym Equipment Shuttle Recovery Unilateral Squats Details netural, IR, and ER foot positions Resistance 100 lbs Shuttle Recovery Platform Stable Reps/Time to fatigue Bilateral Squats Resistance 150 lbs Shuttle Recovery Platform Stable Reps/Time to fatigue Shuttle Balance 1 Details red- DL netural squats Reps/Duration 10 Therapeutic Exercises Standing Exercises TKE Standing Exercise Name terminal knee extension Side right Resistance L3 Reps/Minutes 25 Manual Therapy Treatment Soft Tissue Mobilization 5 Body Location R HS Mobilization Type Rolling Sustained Pressure Comments FM with knee ext 4 Body Location R quads, rectus femoris Mobilization Type Rolling Intensity/Depth Deep Body Position Supine 3 Body Location R knee scar tissue Mobilization Type Rolling Intensity/Depth Moderate Body Position Supine Joint Mobilizations 2 Joint Tibiofemoral Direction AP onto femur & tibia FM APs, tibial ER Grade IV PT-OP-R Modalities Start: 02/11/18 09:30 Freq: Status: Active Protocol: Document 07/03/18 16:00 RCC (Rec: 07/04/18 14:32 RCC [email or web address]) Hot Pack/Cold Pack Treatment Cold Pack Location R anterior knee and lumbar spine Patient Position Hooklying Treatment Duration (minutes) 10 Patient Tolerance Good PT-OP-T Assessment and Plan Start: 02/11/18 09:30 Freq: Status: Active Protocol: Document 07/10/18 15:57 RCC (Rec: 07/11/18 11:42 [facility] [email or web address]) Physical Therapy Assessment Assessment Summary Assessment Pt with improved R knee extension at start of this session, still lacking 1 deg of extension but overall improved. She tolerated exercise with fatigue but no knee pain. Physical Therapy Plan Frequency and Duration Frequency of Treatment 2x/Week Duration of Treatment 6 weeks Plan of Care Start Date 06/24/18 Plan of Care End Date 08/05/18 Next Visit Focus/Plan Next Note Type Treatment Note Next Visit Plan cont. emphasis on obtaining R knee extension, stretching
--- NOTE | 2018-07-15 15:58 | PT.OTN ---
Current Diagnoses Stiffness of right knee, not elsewhere classified (07/15/18) Muscle weakness (generalized) (07/15/18) Other abnormalities of gait and mobility (07/15/18) Sprain of anterior cruciate ligament of right knee, subsequent encounter (07/15/18) Physical Therapy Treatment Note PT-OP-A Visit Information Start: 02/11/18 09:30 Freq: Status: Active Protocol: Document 07/15/18 15:58 RCC (Rec: 07/15/18 17:18 RCC [email or web address]) Out-Patient Physical Therapy Visit Information Visit Information Visit Type Treatment Note Visit Start Time 15:18 Visit Stop Time 15:58 Total Visit Minutes 40 Visit Number 43 Number of BIOMETRIC SCREENER Visits 0 Evaluation Information Evaluation Date 01/01/18 PT-OP-B Current Condition Start: 04/29/18 17:51 Freq: Status: Active Protocol: Document 04/29/18 16:45 RCC (Rec: 04/29/18 18:14 RCC [email or web address]) Current Condition History of Current Condition History of Current Condition Pt is a 22 y/o female presenting to physical therapy s/p R ACL reconstruction ( patellar tendon autograft of ipsilateral side 12/18/2017). Treatment Goals Patient/Caregiver Goals Return to recreational activities (running, Crossfit) PT-OP-C Subjective Start: 02/11/18 09:30 Freq: Status: Active Protocol: Document 07/15/18 15:58 RCC (Rec: 07/15/18 17:18 RCC [email or web address]) OP-PT Subjective Patient Comments Patient Comments Pt notes that she fell on Friday, stepping up on a curb with her L foot and she slipped, landing on her R anterior knee. She notes some bruising on the R knee cap. PT-OP-F Manual Assessment Start: 04/29/18 17:51 Freq: Status: Active Protocol: Document 07/15/18 15:58 RCC (Rec: 07/15/18 17:18 RCC [email or web address]) Manual Assessments Other Manual Assessments Other Manual Assessments Special testing of R knee: negative Mickey, anterior drawer, posterior sag, vargus and valgus (0 and 25 deg). PT-OP-G Mobility & Gait Start: 04/29/18 17:51 Freq: Status: Active Protocol: Document 04/29/18 16:45 RCC (Rec: 04/29/18 18:14 RCC [email or web address]) OP Gait Assessment Comments Gait Comments slight decrease of R knee extension during gait. PT-OP-K Range of Motion Start: 02/11/18 09:30 Freq: Status: Active Protocol: Document 07/10/18 15:57 RCC (Rec: 07/11/18 11:42 RCC [email or web address]) Knee Goniometric Range of Motion Knee Measured in Degrees Right Extension Active (degrees) 1 Extension Passive (degrees) 0 PT-OP-M Strength Start: 04/29/18 17:51 Freq: Status: Active Protocol: Document 06/24/18 16:00 RCC (Rec: 06/25/18 10:32 RCC [email or web address]) Hip Strength Hip Manual Muscle Testing Right Flexion (L2) 4+ Good+ Extension (S1) 4+ Good+ External Rotation 5 Normal Internal Rotation 5 Normal Knee Strength Knee Manual Muscle Testing Right Flexion (S2) 5 Normal Extension (L3) 4+ Good+ Ankle/Foot Strength Ankle and Foot Manual Muscle Testing Right Dorsiflexion (L4) 5 Normal PT-OP-Q Treatments Start: 02/11/18 09:30 Freq: Status: Active Protocol: Document 07/15/18 15:58 RCC (Rec: 07/15/18 17:18 RCC [email or web address]) Gym Equipment Shuttle Recovery Unilateral Squats Details netural, IR, and ER foot positions Resistance 100 lbs (neutral only), 87 lbs Shuttle Recovery Platform Stable Reps/Time to fatigue Bilateral Squats Resistance 150 lbs Shuttle Recovery Platform Stable Reps/Time to fatigue Therapeutic Exercises Standing Exercises TKE Standing Exercise Name terminal knee extension Side right Resistance L3 Reps/Minutes 25 15 Standing Exercise Name gastroc/soleus stretch Side bilateral Equipment Used JAZMÍN Manual Therapy Treatment Soft Tissue Mobilization 5 Body Location R HS Mobilization Type Rolling Sustained Pressure Comments FM with knee ext 3 Body Location R knee scar tissue Mobilization Type Rolling Intensity/Depth Moderate Body Position Supine Joint Mobilizations 2 Joint Tibiofemoral Direction AP onto femur & tibia FM APs, tibial ER Grade IV 1 Joint Patellofemoral (R) Direction superior Body Position Supine PT-OP-R Modalities Start: 02/11/18 09:30 Freq: Status: Active Protocol: Document 07/03/18 16:00 RCC (Rec: 07/04/18 14:32 [facility] [email or web address]) Hot Pack/Cold Pack Treatment Cold Pack Location R anterior knee and lumbar spine Patient Position Hooklying Treatment Duration (minutes) 10 Patient Tolerance Good PT-OP-T Assessment and Plan Start: 02/11/18 09:30 Freq: Status: Active Protocol: Document 07/15/18 15:58 RCC (Rec: 07/15/18 17:18 [facility] [email or web address]) Physical Therapy Assessment Assessment Summary Assessment Pt with good knee extension and quadriceps activation/ timing with leg press and TKE today. Mild swelling anterior R knee, but negative special testing, ligaments appear intact. Physical Therapy Plan Frequency and Duration Frequency of Treatment 2x/Week Duration of Treatment 6 weeks Plan of Care Start Date 06/24/18 Plan of Care End Date 08/05/18 Next Visit Focus/Plan Next Note Type Treatment Note Next Visit Plan review HEP (stretching and strengthening), progress toward d/c next 2 visits due to insurance.
--- NOTE | 2018-07-24 15:56 | PT.OTN ---
Current Diagnoses Stiffness of right knee, not elsewhere classified (07/24/18) Muscle weakness (generalized) (07/24/18) Other abnormalities of gait and mobility (07/24/18) Sprain of anterior cruciate ligament of right knee, subsequent encounter (07/24/18) Physical Therapy Treatment Note PT-OP-A Visit Information Start: 02/11/18 09:30 Freq: Status: Active Protocol: Document 07/24/18 15:56 [facility] (Rec: 07/24/18 16:27 [facility] [email or web address]) Out-Patient Physical Therapy Visit Information Visit Information Visit Type Treatment Note Visit Start Time 15:15 Visit Stop Time 15:56 Total Visit Minutes 41 Visit Number 44 Number of RN BONE MARROW TRANSPLANT Visits 0 Evaluation Information Evaluation Date 01/01/18 PT-OP-B Current Condition Start: 04/29/18 17:51 Freq: Status: Active Protocol: Document 04/29/18 16:45 [facility] (Rec: 04/29/18 18:14 [facility] [email or web address]) Current Condition History of Current Condition History of Current Condition Pt is a 22 y/o female presenting to physical therapy s/p R ACL reconstruction ( patellar tendon autograft of ipsilateral side 12/18/2017). Treatment Goals Patient/Caregiver Goals Return to recreational activities (running, Crossfit) PT-OP-C Subjective Start: 02/11/18 09:30 Freq: Status: Active Protocol: Document 07/24/18 15:56 [facility] (Rec: 07/24/18 16:27 [facility] [email or web address]) OP-PT Subjective Patient Comments Patient Comments Pt reports she walked a lot while in [place], she admits to some hip pain on the L but no R knee pain. PT-OP-F Manual Assessment Start: 04/29/18 17:51 Freq: Status: Active Protocol: Document 07/15/18 15:58 [facility] (Rec: 07/15/18 17:18 [facility] [email or web address]) Manual Assessments Other Manual Assessments Other Manual Assessments Special testing of R knee: negative Mickey, anterior drawer, posterior sag, vargus and valgus (0 and 25 deg). PT-OP-G Mobility & Gait Start: 04/29/18 17:51 Freq: Status: Active Protocol: Document 04/29/18 16:45 [facility] (Rec: 04/29/18 18:14 [facility] [email or web address]) OP Gait Assessment Comments Gait Comments slight decrease of R knee extension during gait. PT-OP-K Range of Motion Start: 02/11/18 09:30 Freq: Status: Active Protocol: Document 07/24/18 15:56 [facility] (Rec: 07/24/18 16:27 [facility] [email or web address]) Knee Goniometric Range of Motion Knee Measured in Degrees Right Extension Active (degrees) 1 Extension Passive (degrees) 0 PT-OP-M Strength Start: 04/29/18 17:51 Freq: Status: Active Protocol: Document 06/24/18 16:00 [facility] (Rec: 06/25/18 10:32 [facility] [email or web address]) Hip Strength Hip Manual Muscle Testing Right Flexion (L2) 4+ Good+ Extension (S1) 4+ Good+ External Rotation 5 Normal Internal Rotation 5 Normal Knee Strength Knee Manual Muscle Testing Right Flexion (S2) 5 Normal Extension (L3) 4+ Good+ Ankle/Foot Strength Ankle and Foot Manual Muscle Testing Right Dorsiflexion (L4) 5 Normal PT-OP-Q Treatments Start: 02/11/18 09:30 Freq: Status: Active Protocol: Document 07/24/18 15:56 [facility] (Rec: 07/24/18 16:27 [facility] [email or web address]) Gym Equipment Shuttle Recovery Unilateral Squats Details netural, IR, and ER foot positions Resistance 75 lbs Shuttle Recovery Platform Stable Reps/Time to fatigue Bilateral Squats Resistance 150 lbs Shuttle Recovery Platform Stable Reps/Time to fatigue Sport Cord 6 Exercise Details lateral walk with squat @ end Cord/Resistance green/black Reps/Duration 5 each 5 Exercise Details forward/backward walks Cord/Resistance green/black Comments emphasis on knee extension with retro walk Therapeutic Exercises Sitting Exercises sciatic nerve glides Sitting Exercise Name sciatic nerve gliding ( tensioner) Side right Manual Therapy Treatment Soft Tissue Mobilization 5 Body Location R HS Mobilization Type Rolling Sustained Pressure Comments FM with knee ext 3 Body Location R knee scar tissue Mobilization Type Rolling Intensity/Depth Moderate Body Position Supine Joint Mobilizations 2 Joint Tibiofemoral Direction AP onto femur & tibia FM APs, tibial ER Grade IV 1 Joint Patellofemoral (R) Direction superior Body Position Supine PT-OP-R Modalities Start: 02/11/18 09:30 Freq: Status: Active Protocol: Document 07/03/18 16:00 [facility] (Rec: 07/04/18 14:32 [facility] [email or web address]) Hot Pack/Cold Pack Treatment Cold Pack Location R anterior knee and lumbar spine Patient Position Hooklying Treatment Duration (minutes) 10 Patient Tolerance Good PT-OP-T Assessment and Plan Start: 02/11/18 09:30 Freq: Status: Active Protocol: Document 07/24/18 15:56 [facility] (Rec: 07/24/18 16:27 [facility] [email or web address]) Physical Therapy Assessment Assessment Summary Assessment Pt's full extension achieved much easier this session compared to previous. Encouraged pt to continue to perform compliance with HEP. Progressing to d/c in 1-2 visits. Physical Therapy Plan Frequency and Duration Frequency of Treatment 2x/Week Duration of Treatment 6 weeks Plan of Care Start Date 06/24/18 Plan of Care End Date 08/05/18 Next Visit Focus/Plan Next Note Type Treatment Note Next Visit Plan prog. ROM and HEP for d/c in next 1-2 visits.
--- NOTE | 2018-08-19 15:45 | PT.OPDS ---
Current Diagnoses Stiffness of right knee, not elsewhere classified (07/24/18) Muscle weakness (generalized) (07/24/18) Other abnormalities of gait and mobility (07/24/18) Sprain of anterior cruciate ligament of right knee, subsequent encounter (07/24/18) Provider Visit Care Team Role Provider Type Yonatan Queen MD Family Provider Non-Staff Primary Care Provider Specialty: Medical Address: [address] [place], [address] Email: Duane Hodges MD Attending Provider Non-Staff Specialty: Medical Address: [id number] [place] [address] [address], [place], [address] Email: Visit Number Visit Number 44 Discharge Summary PT-OP-B Current Condition Start: 04/29/18 17:51 Freq: Status: Active Protocol: Document 04/29/18 16:45 [facility] (Rec: 04/29/18 18:14 [facility] [email or web address]) Current Condition History of Current Condition History of Current Condition Pt is a 22 y/o female presenting to physical therapy s/p R ACL reconstruction ( patellar tendon autograft of ipsilateral side 12/18/2017). Treatment Goals Patient/Caregiver Goals Return to recreational activities (running, Crossfit) PT-OP-C Subjective Start: 02/11/18 09:30 Freq: Status: Active Protocol: Document 08/19/18 15:26 [facility] (Rec: 08/19/18 15:45 [facility] [email or web address]) OP-PT Subjective Patient Comments Patient Comments Discussed with pt about insurance limitations, she reported that her massage and PT were part of the same group of visits allowed, she is out of visits for the remainder of the year and no longer is covered by that particular insurance starting in August . PT-OP-F Manual Assessment Start: 04/29/18 17:51 Freq: Status: Active Protocol: Document 07/15/18 15:58 [facility] (Rec: 07/15/18 17:18 [facility] [email or web address]) Manual Assessments Other Manual Assessments Other Manual Assessments Special testing of R knee: negative Mickey, anterior drawer, posterior sag, vargus and valgus (0 and 25 deg). PT-OP-G Mobility & Gait Start: 04/29/18 17:51 Freq: Status: Active Protocol: Document 04/29/18 16:45 [facility] (Rec: 04/29/18 18:14 [facility] [email or web address]) OP Gait Assessment Comments Gait Comments slight decrease of R knee extension during gait. PT-OP-K Range of Motion Start: 02/11/18 09:30 Freq: Status: Active Protocol: Document 07/24/18 15:56 [facility] (Rec: 07/24/18 16:27 [facility] [email or web address]) Knee Goniometric Range of Motion Knee Measured in Degrees Right Extension Active (degrees) 1 Extension Passive (degrees) 0 PT-OP-M Strength Start: 04/29/18 17:51 Freq: Status: Active Protocol: Document 06/24/18 16:00 [facility] (Rec: 06/25/18 10:32 [facility] [email or web address]) Hip Strength Hip Manual Muscle Testing Right Flexion (L2) 4+ Good+ Extension (S1) 4+ Good+ External Rotation 5 Normal Internal Rotation 5 Normal Knee Strength Knee Manual Muscle Testing Right Flexion (S2) 5 Normal Extension (L3) 4+ Good+ Ankle/Foot Strength Ankle and Foot Manual Muscle Testing Right Dorsiflexion (L4) 5 Normal PT-OP-T Assessment and Plan Start: 02/11/18 09:30 Freq: Status: Active Protocol: Document 08/19/18 15:26 [facility] (Rec: 08/19/18 15:45 [facility] [email or web address]) Physical Therapy Assessment Goals Three Impairment RLE weakness Dietary Service Aide Goal (LTG) 5/5 manual muscle testing of the hip, knee and ankle RLE prior to d/c. -good progress 06/24/2018 LTG Duration 6 weeks Two Impairment R knee ROM Prison Goal (LTG) 0-135 AROM R knee *2-138 AROM R knee on 2017 LTG Duration 6 weeks One Impairment Recreational activities Prison Goal (LTG) Pt will return to running, hiking, gym workouts without pain or restrictions prior to d/c. - some progress 06/24/2018 LTG Duration 6 weeks Progress Towards Goals Progress Towards Goals Progressing Toward Goals Progress Comments last session, pt was able to achieve full extension of the R knee and in discussion with her she is doing her HEP and now will be going back to the gym on a regular basis starting this week. She is, however, not back to doing Crossfit. Assessment Summary Assessment Pt presented with multiple regions of decreased flexibility and increased tension on the R side, including the psoas along with gluteal weakness which contributed to limited functional extension initially upon rehabilitation process. Pt's ROM is now WNL of the R knee as of her last visit, but unfortunately due to insurance visit limitations, a final session was unable to be established to re-check all of her objective measures. Pt without c/o pain at this stage, but is encouraged to continue her HEP and follow the post-op protocol provided by the surgeon. At this time, pt is discharged due to insurance visit limitations. Recommend follow up with surgeon if any issues arise. Physical Therapy Plan Discharge Physical Therapy Discharge Comments insurance visit limitations/ benefits exhausted.
== END 2019-02-19 09:45 | disposition home or self-care (01) ==
LOC: PHYS 15:15
PROVIDERS: Family Provider Family Medicine; PCP Family Medicine; Visit Provider Orthopaedic Surgery
DX: S83.511D Sprain of anterior cruciate ligament of right knee, subsequent encounter (principal); M25.661 Stiffness of right knee, not elsewhere classified; M62.81 Muscle weakness (generalized); R26.89 Other abnormalities of gait and mobility
CPT/HCPCS: 97010; 97110; 97140